=== PATIENT | female | born 1970 | race Caucasian/White ===

== ENCOUNTER → 2017-05-12 | Outpatient (CLI) | payer BC ==
--- NOTE | 2017-05-12 16:15 | WOMENS IMAGING REPORT ---
EXAM DESCRIPTION: BILAT SCREENING MAMMO W/CAD COMPLETED DATE/TIME: 05/12/2017 3:14 pm REASON FOR STUDY: ROUTINE SCREENING; Z12.31 Z12.31 ENCNTR SCREEN MAMMOGRAM FOR MALIGNANT NEOPLASM O F MARY COMPARISON: 05/06/2009. TECHNIQUE: Standard craniocaudal and mediolateral oblique views of each breast recorded using Gezlonga l acquisition. LIMITATIONS: None. FINDINGS: No masses, calcifications or architectural distortion. No areas of suspicion. Read with the assistance of CAD. .[facility] - R2 Cenova Version 1.3 .[facility] - R2 Cenova Version 1.3 .[facility] - R2 Cenova Version 2.4 .[facility] - R2 Cenova Version 2.4 .[facility] - R2 Screw Driver Operator Version 9.2 IMPRESSION: NORMAL MAMMOGRAM. BIRADS 1. BREAST DENSITY: b. There are scattered areas of fibroglandular density. BIRAD: 1 NEGATIVE RECOMMENDATION: ROUTINE SCREENING COMMENT: The patient has been notified of the results by letter per SA requirements. Additional no tification policies are in place for contacting patient with suspicious or incomplete findings. Quality ID #[id number]: The [employer] recommends an annual screening mammogram for women aged 40 years or over. This facility utilizes a reminder system to ensure that all patients receive reminder letters, and/or direct phone calls for appointments. This includes reminders for routine scr eening mammograms, diagnostic mammograms, or other Breast Imaging Interventions when appropriate. Th is patient will be placed in the appropriate reminder system. The [employer] (A[employer]) has developed recommendations for screening MRI of the breast s in certain patient populations, to be used in conjunction with mammography. Breast MRI surveillanc e may be appropriate for women with more than 20% lifetime risk of developing breast cancer as deter mined by genetic testing, significant family history of the disease, or history of mantle radiation f or Hodgkins Disease. ACR Practice Guidelines 2008. TECHNICAL DOCUMENTATION: FINDING NUMBER: (1) ASSESSMENT: (1) JOB ID: [id number] [employer]- All Rights Reserved
== END ==
LOC: WI 14:56
PROVIDERS: ATTEND Specialist
DX: Z12.31 Encounter for screening mammogram for malignant neoplasm of breast (principal)
CPT/HCPCS: 77067; G0202

== ENCOUNTER 2017-06-11 15:04 | Emergency (ER) | payer BC ==
--- NOTE | 2017-06-11 15:29 | ER Document Report ---
ED General - General Mode of Arrival: Ambulatory Information source: Patient TRAVEL OUTSIDE OF THE [place] IN LAST 30 DAYS: No - HPI Similar symptoms previously: No Recently seen / treated by doctor: No <JASWANT CAMPBELL - Last Filed: 06/11/17 16:38> <DREADTABBYALEKSANDRA - Last Filed: 06/11/17 20:08> - General Chief Complaint: Nausea Stated Complaint: NAUSEA Time Seen by Provider: 06/11/17 15:24 Notes: Patient is a 47 year old female presenting to the emergency department for nausea, lightheadedness, and not feeling well. Patient's symptoms were onset around 13:30. Patient states she does not feel well. Patient ran out of her hypertension medication yesterday (Losartan 25mg x1 daily). Patient's last dose was yesterday. Patient states she is concerned about possible diabetes because she states she does not eat well, drinks lots of sweet tea, and sometimes has to eat a candy or soda while working to keep herself going. Patient states she sometimes has chest pain but has not had any today. Patient states she is feeling "off and not right." Patient denies any dizziness when walking, vomiting , or diarrhea. (JASWANT CAMPBELL) - Related Data Allergies/Adverse Reactions: No Known Allergies Allergy (Verified 06/11/17 15:10) Past Medical History - General Information source: Patient - Social History Smoking Status: Current Every Day Smoker Chew tobacco use (# tins/day): No Smoking Education Provided: Yes - >5 minutes Frequency of alcohol use: Rare Drug Abuse: None Family History: Arthritis, Hypertension, Malignancy Patient has suicidal ideation: No Patient has homicidal ideation: No - Past Medical History Cardiac Medical History: Reports: Hx Hypertension Psychiatric Medical History: Reports: Hx Anxiety, Hx Depression Past Surgical History: Reports: Hx Tubal Ligation - Immunizations Immunizations up to date: No Hx Diphtheria, Pertussis, Tetanus Vaccination: No <JASWANT CAMPBELL - Last Filed: 06/11/17 16:38> Review of Systems - Review of Systems Constitutional: No symptoms reported EENT: No symptoms reported Cardiovascular: See HPI, Lightheaded Respiratory: No symptoms reported Gastrointestinal: See HPI, Nausea Genitourinary: No symptoms reported Female Genitourinary: No symptoms reported Musculoskeletal: No symptoms reported Skin: No symptoms reported Hematologic/Lymphatic: No symptoms reported Neurological/Psychological: No symptoms reported -: Yes All other systems reviewed and negative <JASWANT CAMPBELL - Last Filed: 06/11/17 16:38> Physical Exam - Vital signs Interpretation: Normal <JASWANT CAMPBELL - Last Filed: 06/11/17 16:38> <ALEKSANDRA MARIO - Last Filed: 06/11/17 20:08> - Vital signs Vitals: Temp Pulse Resp BP Pulse Ox 98.4 F 92 12 122/77 99 06/11/17 15:10 06/11/17 15:10 06/11/17 15:10 06/11/17 15:10 06/11/17 15:10 - Notes Notes: GENERAL: Alert, interacts well. No acute distress. HEAD: Normocephalic, atraumatic. EYES: Pupils equal, round, and reactive to light. Extraocular movements intact. ENT: Oral mucosa moist, tongue midline. NECK: Full range of motion. Supple. Trachea midline. LUNGS: Clear to auscultation bilaterally, no wheezes, rales, or rhonchi. No respiratory distress. HEART: Regular rate and rhythm. No murmurs, gallops, or rubs. ABDOMEN: Soft, non-tender. Non-distended. Bowel sounds present in all 4 quadrants. EXTREMITIES: Moves all 4 extremities spontaneously. No edema. NEUROLOGICAL: Alert and oriented x3. Normal speech. PSYCH: Normal affect, normal mood. SKIN: Warm, dry, normal turgor. No rashes or lesions noted. (JASWANT CAMPBELL) Course - Laboratory Result Diagrams: 06/11/17 15:59 06/11/17 15:59 <JASWANT CAMPBELL - Last Filed: 06/11/17 16:38> - Laboratory Result Diagrams: 06/11/17 15:59 06/11/17 15:59 <ALEKSANDRA MARIO - Last Filed: 06/11/17 20:08> - Re-evaluation Re-evalutation: 06/11/17 17:22 CBC shows anemia with hemoglobin 9.2, no leukocytosis, CMP grossly unremarkable , urinalysis only's most small leukocyte esterase and that is with 5 squamous epithelial cells likely contaminated, EKG is nonischemic nor is it bradycardic or delayed. Some of her symptoms may be coming from her anemia but she does not have any complaints that would relate to a GI bleed at this time, patient should have her anemia followed up as an outpatient. No evidence of myocardial infarction. Vital signs are stable. Patient's losartan will be refilled and she is asked to follow-up for her general malaise and anemia as an outpatient. ( ALEKSANDRA MARIO) - Vital Signs Vital signs: Temp Pulse Resp BP Pulse Ox 98.4 F 85 16 112/79 100 06/11/17 15:10 06/11/17 17:39 06/11/17 17:39 06/11/17 17:39 06/11/17 17:39 - Laboratory Laboratory results interpreted by me: 06/11/17 06/11/17 06/11/17 15:59 15:59 15:59 Hgb 9.2 L Hct 29.8 L MCV 63 L MCH 19.5 L MCHC 31.0 L RDW 18.3 H AST 12 L Ur Leukocyte Esterase SMALL H Discharge <JASWANT CAMPBELL - Last Filed: 06/11/17 16:38> <ALEKSANDRA MARIO - Last Filed: 06/11/17 20:08> - Discharge Clinical Impression: Tobacco abuse, Tobacco abuse counseling Anemia Qualifiers: Anemia type: unspecified type Qualified Code(s): D64.9 - Anemia, unspecified Condition: Stable Disposition: HOME, SELF-CARE Additional Instructions: Today your blood count was found to be somewhat low, hemoglobin is 9.2. You will need to have this rechecked in the next 1-2 weeks with your primary care physician to make sure that it does not continue to get lower. Please return to the emergency department should you develop any dark black tarry stools or you start vomiting blood. Please return to the emergency department for any new or concerning symptoms. Prescriptions: Losartan Potassium 25 mg PO DAILY #30 tablet Forms: Smoking Cessation Education Scribe Attestation: 06/11/17 20:08 I personally performed the services described in the documentation, reviewed and edited the documentation which was dictated to the scribe in my presence, and it accurately records my words and actions. (ALEKSANDRA MARIO) Scribe Documentation - Scribe Written by Khari:: Khari Suarez 06/11/17 16:41 acting as scribe for :: Carline <JASWANT CAMPBELL - Last Filed: 06/11/17 16:38>
[2017-06-11 16:09] LABS: ABSOLUTE EOSINOPHILS # (AUTO) 0.2 10^3/uL (0.0-0.6); ABSOLUTE LYMPHOCYTES (AUTO) 2.3 10^3/uL (0.5-4.7); ABSOLUTE MONOCYTES (AUTO) 0.6 10^3/uL (0.1-1.4); ABSOLUTE NEUT (AUTO) 4.4 10^3/uL (1.7-8.2); BASOPHILS % (AUTO) 0.5 % (0-2); EOSINOPHILS % (AUTO) 2.2 % (0-6); HEMATOCRIT 29.8 % (36.0-47.0); HEMOGLOBIN 9.2 g/dL (12.0-15.5); HGB HCT DIFFERENCE -2.2; LYMPHOCYTES % (AUTO) 30.9 % (13-45); MEAN CORPUSCULAR HEMOGLOBIN 19.5 pg (27.0-33.4); MONOCYTES % (AUTO) 7.6 % (3-13); RED BLOOD COUNT 4.74 10^6/uL (3.72-5.28); RED CELL DISTRIBUTION WIDTH 18.3 % (11.5-14.0); SEGMENTED NEUTROPHILS % (AUTO) 58.8 % (42-78); WHITE BLOOD COUNT 7.5 10^3/uL (4.0-10.5)
[2017-06-11 16:12] LABS: APPEARANCE,URINE SLIGHTLY-CLOUDY; BILIRUBIN,URINE NEGATIVE (NEGATIVE); GLUCOSE, URINE NEGATIVE (NEGATIVE); KETONES,URINE NEGATIVE (NEGATIVE); LEUKOCYTE ESTERASE,URINE SMALL (NEGATIVE); NITRITE,URINE NEGATIVE (NEGATIVE); PROTEIN,URINE NEGATIVE (NEGATIVE); UROBILINOGEN,URINE NEGATIVE mg/dL (<2.0)
[2017-06-11 16:24] LABS: ALANINE AMINOTRANSFERASE 21 U/L (9-52); ALBUMIN 3.8 g/dL (3.5-5.0); ALKALINE PHOSPHATASE 84 U/L (38-126); ANION GAP 11 (5-19); ASPARTATE AMINO TRANSFERASE 12 U/L (14-36); BILIRUBIN,DIRECT 0.3 mg/dL (0.0-0.4); BILIRUBIN,TOTAL 0.7 mg/dL (0.2-1.3); BLOOD UREA NITROGEN 12 mg/dL (7-20); CALCIUM 9.4 mg/dL (8.4-10.2); CARBON DIOXIDE 24 mmol/L (22-30); CHLORIDE 104 mmol/L (98-107); CREATININE RESULT 0.78 mg/dL (0.52-1.25); GLUCOSE 98 mg/dL (75-110); POTASSIUM 4.2 mmol/L (3.6-5.0); SODIUM 139.4 mmol/L (137-145); TOTAL PROTEIN 6.8 g/dL (6.3-8.2)
[2017-06-11 16:29] LABS: TOXIC GRANULATION SLIGHT
[2017-06-11 16:30] LABS: ANISOCYTOSIS 2+; HYPOCHROMASIA 2+; MEAN CORPUSCULAR VOLUME 63 fl (80-97); MICROCYTOSIS 3+; OVALOCYTES SLIGHT; POIKILOCYTOSIS 1+
[2017-06-11 17:41] VITALS: BP 112/79
--- NOTE | 2017-06-12 00:13 | EKG REPORT ---
SEVERITY:- NORMAL ECG - SINUS RHYTHM : Confirmed by: Osbaldo Blackman 12-Jun-2017 00:12:35
[2017-06-14 12:54] LABS: PATH REVIEW PATHOLOGIST REVIEWED
== END 2017-06-11 17:41 | disposition home or self-care (01) ==
LOC: ER 15:04
DX: D64.9 Anemia, unspecified (principal); R11.0 Nausea; R42 Dizziness and giddiness; R53.81 Other malaise; I10 Essential (primary) hypertension; F17.200 Nicotine dependence, unspecified, uncomplicated; Z71.6 Tobacco abuse counseling; Z79.899 Other long term (current) drug therapy
CPT/HCPCS: 36415; 80053; 81001; 84484; 85025; 93005; 93010; 99283; 99406

== ENCOUNTER 2017-10-09 15:00 | Emergency (ER) | payer BC ==
[2017-10-09 15:07] VITALS: BP 129/86
--- NOTE | 2017-10-09 15:53 | ER Document Report ---
ED Respiratory Problem - General Chief Complaint: Cough Stated Complaint: COUGH Time Seen by Provider: 10/09/17 15:50 Notes: The patient is a 47-year-old female, former smoker, who presents with 1 week of a dry cough that is worse at night. Her daughter had similar symptoms last week. She is now coughing up yellow sputum. She denies hemoptysis, fevers, chest pain, shortness of breath, leg swelling, recent travel or back pain. TRAVEL OUTSIDE OF THE [place] IN LAST 30 DAYS: No - Related Data Allergies/Adverse Reactions: No Known Allergies Allergy (Verified 10/09/17 15:02) Past Medical History - General Information source: Patient - Social History Smoking Status: Former Smoker Chew tobacco use (# tins/day): No Frequency of alcohol use: None Drug Abuse: None Family History: Arthritis, Hypertension, Malignancy Patient has suicidal ideation: No Patient has homicidal ideation: No - Past Medical History Cardiac Medical History: Reports: Hx Hypertension Renal/ Medical History: Denies: Hx Peritoneal Dialysis Psychiatric Medical History: Reports: Hx Anxiety, Hx Depression Past Surgical History: Reports: Hx Tubal Ligation - Immunizations Immunizations up to date: No Hx Diphtheria, Pertussis, Tetanus Vaccination: No Review of Systems - Review of Systems Notes: REVIEW OF SYSTEMS: CONSTITUTIONAL: -fevers, -chills EENT: -eye pain, -difficulty swallowing, -nasal congestion CARDIOVASCULAR:-chest pain, -syncope. RESPIRATORY: +cough, -SOB GASTROINTESTINAL: -abdominal pain, - nausea, -vomiting, -diarrhea GENITOURINARY: -dysuria, -hematuria MUSCULOSKELETAL: -back pain, -neck pain SKIN: -rash or skin lesions. HEMATOLOGIC: -easy bruising or bleeding. LYMPHATIC: -swollen, enlarged glands. NEUROLOGICAL: -altered mental status or loss of consciousness, -headache, - neurologic symptoms PSYCHIATRIC: -anxiety, -depression. ALL OTHER SYSTEMS REVIEWED AND NEGATIVE. Physical Exam - Vital signs Vitals: Temp Pulse Resp BP Pulse Ox 98.6 F 94 14 129/86 H 99 10/09/17 15:07 10/09/17 15:07 10/09/17 15:07 10/09/17 15:07 10/09/17 15:07 - Notes Notes: PHYSICAL EXAMINATION: GENERAL: Well-appearing, well-nourished and in no acute distress. HEAD: Atraumatic, normocephalic. EYES: Pupils equal round and reactive to light, extraocular movements intact, sclera anicteric, conjunctiva are normal. ENT: nares patent, oropharynx clear without exudates. Moist mucous membranes. NECK: Normal range of motion, supple without lymphadenopathy LUNGS: Breath sounds clear to auscultation bilaterally and equal. No wheezes rales or rhonchi. HEART: Regular rate and rhythm without murmurs ABDOMEN: Soft, nontender, normoactive bowel sounds. No guarding, no rebound. No masses appreciated. EXTREMITIES: Normal range of motion, no pitting or edema. No cyanosis. NEUROLOGICAL: Cranial nerves grossly intact. Normal speech, normal gait. Normal sensory and motor exams. PSYCH: Normal mood, normal affect. SKIN: Warm, Dry, normal turgor, no rashes or lesions noted. Course - Re-evaluation Re-evalutation: Patient is in no respiratory distress and lungs are clear. Chest x-ray does not show any focal infiltrates. Instructed patient about symptomatic treatment with beta agonist, humidifiers, honey and Tessalon Perles for her cough. Given return precautions and she understands. - Vital Signs Vital signs: Temp Pulse Resp BP Pulse Ox 98.6 F 94 14 129/86 H 99 10/09/17 15:07 10/09/17 15:07 10/09/17 15:07 10/09/17 15:07 10/09/17 15:07 - Diagnostic Test Radiology reviewed: Image reviewed, Reports reviewed Radiology results interpreted by me: CXR: NAD Discharge - Discharge Clinical Impression: Cough Condition: Stable Disposition: HOME, SELF-CARE Additional Instructions: UPPER RESPIRATORY ILLNESS: You have a viral infection of the respiratory passages -- a "cold." This common infection causes nasal congestion, drainage, and often sore throat and cough. It is highly contagious. The disease usually lasts about 10 to 14 days. There is no "cure" for the viral infection -- it must run its course. If there is a complication, such as bacterial infection in the nose, sinuses, middle ear, or bronchial tubes, antibiotics may be required. The antibiotics won't affect the virus. Drink plenty of fluids. A humidifier may help. An expectorant medication or decongestant may make you more comfortable. Use acetaminophen or ibuprofen for fever or aches. See the doctor if fever persists over two days, if there is any significant worsening of your symptoms, or if you simply fail to improve as expected. BRONCHOSPASM: You have tightness in the bronchial tubes, called bronchospasm. This often occurs with bronchial infections. Allergies, inhaled chemicals, and polluted or cold air can also provoke bronchospasm. It's more likely in patients with asthma in the family. Emergency treatment of bronchospasm may include adrenaline shots or bronchodilator aerosol. You may feel lightheaded and have a rapid pulse for an hour or two. Rest and get plenty of fluids. At home, we'll treat you with a bronchodilator inhaler. Antibiotics and corticosteroids may be required for some patients. Until you recover, avoid chemical fumes, dusts, pollens, and exercising in very cold or dry air. If you smoke, stop now!! If you develop a fever, increased wheezing, chest pain, or severe shortness of breath, you should contact the doctor immediately. COUGH-SUPPRESSANT & EXPECTORANT MEDICATION: You are to use a cough medication as needed for relief of symptoms. This medicine is a combination of an expectorant (to make the mucous thinner and more easily "coughed up") and a cough suppressant (to reduce the frequency of coughing). The cough-suppressant medicine is related to narcotics. You may experience mild nausea and sleepiness. Some patients who are very sensitive to narcotics may have stomach pain from this medicine. Taking the medicine with food reduces these side effects. Do not drive or work with machinery until you know how this medicine affects you. The expectorant should have no side effects. Iodine-containing expectorants (such as organidin) should not be taken by persons with active thyroid disease unless approved by your doctor. Call the doctor if you develop shortness of breath, hives, rash, itching, lightheadedness, or severe nausea and vomiting. INHALED BRONCHODILATORS: You have received a treatment of and/or prescription for an inhaled bronchodilator -- a medication which stimulates the airways in the lung to dilate. This improves the flow of air in asthma, bronchitis, and emphysema. These medicines have some similarity to adrenaline, and can cause similar side effects: shakiness, racing heart, and a sense of nervousness. These side effects decrease with time. Contact your doctor if these side effects are severe. Do not over-use the medicine. Too-frequent use of the inhaler may make it ineffective. Call your doctor if the inhaler is not controlling your symptoms at the prescribed doses. USE OF ACETAMINOPHEN (Tylenol): Acetaminophen may be taken for pain relief or fever control. It's much safer than aspirin, offering a wider range of "safe" dosages. It is safe during . Some brand names are Tylenol, Panadol, Datril, Anacin 3, Tempra, and Liquiprin. Acetaminophen can be repeated every four hours. The following are maximum recommended dosages: >89 pounds or adults 650 mg to 900 mg Acetaminophen can be repeated every four hours. Maximum dose not to exceed 4000 mg a day. SMOKING: If you smoke, you should stop smoking. The tar and chemicals in cigarette smoke are harmful. Smoking has been shown to cause: emphysema chronic bronchitis lung cancer mouth and throat cancer stomach and pancreas cancer premature aging defects In addition, smoking increases ear and lung infections in children of smokers. FOLLOW-UP CARE: If you have been referred to a physician for follow-up care, call the physician s office for an appointment as you were instructed or within the next two days. If you experience worsening or a significant change in your symptoms, notify the physician immediately or return to the Emergency Department at any time for re-evaluation. Prescriptions: Benzonatate [Tessalon Perles 100 mg Capsule] 100 mg PO Q8HP PRN #20 capsule PRN Reason: Albuterol Sulfate [Proair HFA Inhalation Aerosol 8.5 gm MDI] 2 puff IH Q4H PRN # 1 mdi PRN Reason: Forms: Elevated Blood Pressure Referrals: FAINA GRUBBS MD [Primary Care Provider] - Follow up as needed
--- NOTE | 2017-10-09 16:17 | RADIOLOGY REPORT (SQ) ---
EXAM DESCRIPTION: CHEST PA/LAT COMPLETED DATE/TIME: 10/09/2017 4:03 pm REASON FOR STUDY: cough COMPARISON: 10/06/2011 EXAM PARAMETERS: NUMBER OF VIEWS: two views TECHNIQUE: Digital Frontal and Lateral radiographic views of the chest acquired. RADIATION DOSE: NA LIMITATIONS: none FINDINGS: LUNGS AND PLEURA: No opacities, masses or pneumothorax. No pleural effusion. MEDIASTINUM AND HILAR STRUCTURES: No masses or contour abnormalities. HEART AND VASCULAR STRUCTURES: Heart normal size. No evidence for failure. BONES: No acute findings. HARDWARE: None in the chest. OTHER: No other significant finding. IMPRESSION: NO SIGNIFICANT RADIOGRAPHIC FINDING IN THE CHEST. TECHNICAL DOCUMENTATION: JOB ID: [id number] [employer]- All Rights Reserved
[2017-10-09] MEDS ORDERED: BENZONATATE 100 MG CAPSULE PO ONE (16:22)
== END 2017-10-09 16:40 | disposition home or self-care (01) ==
LOC: ER 15:00
DX: R05 Cough (principal); Z87.891 Personal history of nicotine dependence
CPT/HCPCS: 71020; 99283

== ENCOUNTER 2017-12-07 12:52 | Emergency (ER) | payer BC ==
[2017-12-07] MEDS ORDERED: IPRATROPIUM/ALBUTEROL 0.5-2.5 MG/3 ML AMPUL NEB ONE (14:07)
[2017-12-07] MEDS ORDERED: PREDNISONE 20 MG TABLET PO ONE (14:08)
--- NOTE | 2017-12-07 14:17 | ER Document Report ---
HPI - HPI Patient complains to provider of: Cough Onset: Other - 3 days Onset/Duration: Persistent Pain Level: 0 Context: Patient complains of chronic cough that worsened over the past 3 days. Patient reports sinus congestion and diarrhea. Patient denies any nausea, vomiting or fever. Patient denies any chest discomfort. Associated Symptoms: Nonproductive cough, Diarrhea. denies: Chest pain, Fever, Headache, Nausea, Vomiting Exacerbated by: Denies Relieved by: Denies Similar symptoms previously: Yes Recently seen / treated by doctor: No - ROS ROS below otherwise negative: Yes Systems Reviewed and Negative: Yes All other systems reviewed and negative - CONSTITUTIONAL Constitutional: DENIES: Fever, Chills - EENT EENT: REPORTS: Congestion. DENIES: Sore Throat - CARDIOVASCULAR Cardiovascular: DENIES: Chest pain - RESPIRATORY Respiratory: REPORTS: Coughing. DENIES: Trouble Breathing - GASTROINTESTINAL Gastrointestinal: REPORTS: Diarrhea. DENIES: Abdominal Pain, Patient vomiting - REPRODUCTIVE Reproductive: DENIES: : - DERM Skin Color: Normal Skin Problems: None Past Medical History - General Information source: Patient - Social History Smoking Status: Former Smoker Frequency of alcohol use: None Drug Abuse: None Occupation: [employer] Family History: Arthritis, Hypertension, Malignancy - Past Medical History Cardiac Medical History: Reports: Hx Hypertension Renal/ Medical History: Denies: Hx Peritoneal Dialysis Psychiatric Medical History: Reports: Hx Anxiety, Hx Depression Past Surgical History: Reports: Hx Tubal Ligation - Immunizations Immunizations up to date: No Hx Diphtheria, Pertussis, Tetanus Vaccination: No Vertical Provider Document - CONSTITUTIONAL Agree With Documented VS: Yes Exam Limitations: No Limitations General Appearance: WD/WN, No Apparent Distress - INFECTION CONTROL TRAVEL OUTSIDE OF THE [place] IN LAST 30 DAYS: No - HEENT HEENT: Atraumatic, Normal ENT Exam, Normocephalic - NECK Neck: Normal Inspection, Supple - RESPIRATORY Respiratory: No Respiratory Distress, Wheezing - with cough O2 Sat by Pulse Oximetry: 99 - CARDIOVASCULAR Cardiovascular: Regular Rate, Regular Rhythm, No Murmur - BACK Back: Normal Inspection - MUSCULOSKELETAL/EXTREMETIES Musculoskeletal/Extremeties: MAEW - NEURO Level of Consciousness: Awake, Alert, Appropriate Motor/Sensory: No Motor Deficit - DERM Integumentary: Warm, Dry, No Rash Course - Re-evaluation Re-evalutation: 12/07/17 15:37 Patient's respirations unlabored. Patient nontoxic in appearance. No concern for pneumonia pneumothorax, or PE. Discussed worsening symptoms that patient should return mainly for. Patient verbalized understanding and agrees with plan of care - Vital Signs Vital signs: Temp Pulse Resp BP Pulse Ox 98.5 F 97 18 124/87 H 99 12/07/17 13:04 12/07/17 13:04 12/07/17 13:04 12/07/17 13:04 12/07/17 13:04 - Diagnostic Test Radiology reviewed: Image reviewed, Reports reviewed Discharge - Discharge Clinical Impression: Cough, Bronchospasm Condition: Stable Disposition: HOME, SELF-CARE Instructions: Bronchospasm ([facility]), Inhaled Bronchodilators ([facility]), Steroid Medication, Upper Respiratory Illness ([facility]) Additional Instructions: Return immediately for any new or worsening symptoms Followup with your primary care provider, call tomorrow to make a followup appointment Prescriptions: Albuterol Sulfate [Ventolin Hfa] 2 puff IH Q4HP PRN #17 gm PRN Reason: Prednisone [Deltasone 10 mg Tablet] 10 mg PO ASDIR PRN #21 tablet PRN Reason: Forms: Return to Work Referrals: [facility] [Provider Group] - Follow up tomorrow
--- NOTE | 2017-12-07 15:23 | RADIOLOGY REPORT (SQ) ---
EXAM DESCRIPTION: CHEST PA/LAT COMPLETED DATE/TIME: 12/07/2017 3:05 pm REASON FOR STUDY: cough COMPARISON: Two-view chest 10/09/2017, 10/06/2011, 08/01/2011 EXAM PARAMETERS: NUMBER OF VIEWS: two views TECHNIQUE: Digital Frontal and Lateral radiographic views of the chest acquired. RADIATION DOSE: NA LIMITATIONS: none FINDINGS: LUNGS AND PLEURA: No opacities, masses or pneumothorax. No pleural effusion. MEDIASTINUM AND HILAR STRUCTURES: No masses or contour abnormalities. HEART AND VASCULAR STRUCTURES: Heart normal size. No evidence for failure. BONES: No acute findings. HARDWARE: None in the chest. OTHER: No other significant finding. IMPRESSION: NO SIGNIFICANT RADIOGRAPHIC FINDING IN THE CHEST. TECHNICAL DOCUMENTATION: JOB ID: [id number] [employer]- All Rights Reserved
[2017-12-07 15:47] VITALS: BP 114/74
== END 2017-12-07 15:50 | disposition home or self-care (01) ==
LOC: ER 12:52
DX: J98.01 Acute bronchospasm (principal); R05 Cough; Z87.891 Personal history of nicotine dependence
CPT/HCPCS: 94640; 99283; 71046; J7512; J7620

== ENCOUNTER 2017-12-21 15:35 | Emergency (ER) | payer BC ==
[2017-12-21] MEDS ORDERED: IBUPROFEN 800 MG TABLET PO ONE (16:42)
[2017-12-21] MEDS ORDERED: ONDANSETRON 4 MG TAB.RAPDIS PO ONE (16:42)
--- NOTE | 2017-12-21 16:48 | ER Document Report ---
ED Extremity Problem, Upper - General Chief Complaint: Arm Pain Stated Complaint: LT HAND/ARM PAIN Time Seen by Provider: 12/21/17 16:20 Mode of Arrival: Ambulatory Information source: Patient Notes: 47-year-old female presents to ED for complaint of left hand and wrist pain the last 2 days. She states she does a lot of repetitive work at [employer] and the pain started in several fingertips and now has progress down to her hand and arm sometimes goes all way up her arm. She states she does not remember any definite injury. Patient alert and oriented speaks with clear complete sentences walks with the even steady gait has full range of motion of her hand and wrist. TRAVEL OUTSIDE OF THE [place] IN LAST 30 DAYS: No - HPI Patient complains to provider of: Left, Arm, Hand, Wrist Onset: Other - 2 days Recent injury: No Where: Work Quality of pain: Achy, Cramping, Sharp Severity of pain: Moderate Pain Level: 3 - Related Data Allergies/Adverse Reactions: No Known Allergies Allergy (Verified 12/07/17 12:59) Past Medical History - General Information source: Patient - Social History Smoking Status: Former Smoker Cigarette use (# per day): No Smoking Education Provided: No Frequency of alcohol use: None Drug Abuse: None Occupation: [employer] Lives with: Family Family History: Arthritis, COPD, CVA, DM, Hypertension, Malignancy. denies: CAD , Hyperlipidemia, Thyroid Disfunction Patient has suicidal ideation: No Patient has homicidal ideation: No - Past Medical History Cardiac Medical History: Reports: Hx Hypertension Pulmonary Medical History: Reports: None EENT Medical History: Reports: None Neurological Medical History: Reports: None Endocrine Medical History: Reports: None Renal/ Medical History: Reports: None Malignancy Medical History: Reports: None GI Medical History: Reports: None Musculoskeltal Medical History: Reports None Skin Medical History: Reports None Psychiatric Medical History: Reports: Hx Anxiety, Hx Depression Traumatic Medical History: Reports: None Infectious Medical History: Reports: None Past Surgical History: Reports: Hx Tubal Ligation, Other - Ears surgery for hearing - Immunizations Immunizations up to date: No Hx Diphtheria, Pertussis, Tetanus Vaccination: No Review of Systems - Review of Systems Notes: Constitutional: [PRESENT: as per HPI. ABSENT: chills, fever(s), headache(s), weight gain, weight loss] Eyes: [ABSENT: visual disturbances] Ears: [ABSENT: hearing changes] Cardiovascular: [ABSENT: chest pain, dyspnea on exertion, edema, orthropnea, palpitations] Respiratory: [ABSENT: cough, hemoptysis] Gastrointestinal: [ABSENT: abdominal pain, constipation, diarrhea, hematemesis, hematochezia, nausea, vomiting] Genitourinary: [ABSENT: dysuria, hematuria] Musculoskeletal: Tenderness to the left hand and wrist no actual swelling noted pain with range of motion to the thumb and wrist Integumentary: [ABSENT: rash, wounds] Neurological: [ABSENT: abnormal gait, abnormal speech, confusion, dizziness, focal weakness, syncope] Psychiatric: [ABSENT: anxiety, depression, homicidal ideation, suicidal ideation ] Endocrine: [ABSENT: cold intolerance, heat intolerance, menstrual abnormalities , polydipsia, polyuria] Hematologic/Lymphatic: [ABSENT: easy bleeding, easy bruising, lymphadenopathy] Physical Exam - Vital signs Vitals: Temp Pulse Resp BP Pulse Ox 98.9 F 93 16 128/75 H 98 12/21/17 15:42 12/21/17 15:42 12/21/17 15:42 12/21/17 15:42 12/21/17 15:42 - Notes Notes: PHYSICAL EXAMINATION: GENERAL: Well-appearing, well-nourished and in no acute distress. HEAD: Atraumatic, normocephalic. EYES: Pupils equal round and reactive to light, extraocular movements intact, conjunctiva are normal. ENT: Nares patent, oropharynx clear without exudates. Moist mucous membranes. NECK: Normal range of motion, supple without lymphadenopathy LUNGS: Breath sounds clear to auscultation bilaterally and equal. No wheezes rales or rhonchi. HEART: Regular rate and rhythm without murmurs ABDOMEN: Soft, nontender, nondistended abdomen. No guarding, no rebound. No masses appreciated. Female : deferred Musculoskeletal: Pain with range of motion to the left thumb and wrist, no pitting or edema. No cyanosis. NEUROLOGICAL: Cranial nerves grossly intact. Normal speech, normal gait. Normal sensory, motor exams PSYCH: Normal mood, normal affect. SKIN: Warm, Dry, normal turgor, no rashes or lesions noted. Course - Re-evaluation Re-evalutation: 12/22/17 00:28 X-ray showed no acute injury. Before patient was discharged a cock-up splint was applied for patient's comfort. Patient was instructed that if pain continues she needs to follow-up with orthopedics. Instructions were given concerning use of cock-up splint for comfort. Patient was also given instructions on ice elevation and ibuprofen. Patient was able to verbalize understanding of instructions. - Vital Signs Vital signs: Temp Pulse Resp BP Pulse Ox 98.9 F 74 16 108/80 98 12/21/17 15:42 12/21/17 18:53 12/21/17 18:53 12/21/17 18:53 12/21/17 18:53 - Diagnostic Test Radiology reviewed: Image reviewed, Reports reviewed Procedures - Immobilization Left Wrist Time completed: 18:35 Immobilizer type: Cock-up Performed by: PCT Post-Proc Neuro Vasc Exam: Normal Alignment checked and good: Yes Discharge - Discharge Clinical Impression: Left wrist pain, Left hand pain, HTN (hypertension) Condition: Stable Disposition: HOME, SELF-CARE Additional Instructions: You were seen today for pain to the left wrist and hand for the last couple days. She states there is no acute injury. Your x-ray was negative. I have applied a cock-up splint to your left wrist to reduce the motion to the wrist to help with her discomfort. Wear this for comfort and follow-up with orthopedic for continued pain in your wrist. Ice & Elevation Apply ice packs frequently against the painful area. Many different schedules are recommended, such as "20 minutes on, 20 minutes off" or "one hour ice, two hours rest." If you need to work, you may need to go longer between ice treatments. You should plan to have the area ice packed AT LEAST one- fourth of the time. The ice should be applied over the wrap, tape, or splint, or over a layer of cloth -- not directly against the skin. Some ice bags have a built-in cloth and can be put directly on the skin. Your injured part should be elevated as much as possible over the next 48 hours. Try to keep the injury above the level of the heart. Avoid use of the injured area. Elevation and rest will decrease the swelling. Ibuprofen Ibuprofen is an excellent, safe drug for pain control. In addition, it has potent antiinflammatory effects which are beneficial, especially in the treatment of injuries, arthritis, or tendonitis. It's best to take ibuprofen with food. Persons with ulcer disease or allergy to aspirin should notify their physician of this before taking ibuprofen. Take the medication exactly as prescribed. Don't take additional doses unless instructed to do so by your doctor. If you develop wheezing, shortness of breath, hives, faintness, stomach pain, vomiting, or dark black stools, return for re-evaluation at once. Splint Precautions A splint has been placed. This will protect the area while healing begins. Your problem does NOT normally require a cast. It MUST, however, be held still! Keep the splint on ALL THE TIME until instructed to remove it by the doctor. As you begin to use the area, be careful. You shouldn't do anything which causes discomfort -- you may disturb the injury even with the splint in place. After the initial period of rest and elevation, if splint does not prevent pain when you move, come back. You may require placement of a different splint , or a cast. If there is unexpected severe pain, or numbness, discoloration, or swelling beyond the splint, you should return at once. If you feel that the splint has broken or become loose, come back. FOLLOW-UP CARE: If you have been referred to a physician for follow-up care, call the physician s office for an appointment as you were instructed or within the next two days. If you experience worsening or a significant change in your symptoms, notify the physician immediately or return to the Emergency Department at any time for re-evaluation. Forms: Elevated Blood Pressure, Return to Work Referrals: KATE ENCINAS MD [Primary Care Provider] - Follow up as needed JEET NAIK MD [ACTIVE STAFF] - Follow up as needed
--- NOTE | 2017-12-21 17:59 | RADIOLOGY REPORT (SQ) ---
EXAM DESCRIPTION: WRIST LEFT 3 VIEWS COMPLETED DATE/TIME: 12/21/2017 4:55 pm REASON FOR STUDY: pain, swelling COMPARISON: None. NUMBER OF VIEWS: Three views. TECHNIQUE: AP, lateral, and oblique radiographic images acquired of the left wrist. LIMITATIONS: None. FINDINGS: MINERALIZATION: Normal. BONES: No acute fracture or dislocation. No worrisome bone lesions. Normal alignment. SOFT TISSUES: No soft tissue swelling. No foreign body. OTHER: No other significant finding. IMPRESSION: NEGATIVE STUDY OF THE LEFT WRIST. NO RADIOGRAPHIC EVIDENCE OF ACUTE INJURY. TECHNICAL DOCUMENTATION: JOB ID: [id number] [employer]- All Rights Reserved Reading location - IP/workstation name: [email or web address]
--- NOTE | 2017-12-21 18:06 | RADIOLOGY REPORT (SQ) ---
EXAM DESCRIPTION: HAND LEFT 3 VIEWS COMPLETED DATE/TIME: 12/21/2017 4:55 pm REASON FOR STUDY: pain, swelling COMPARISON: None. EXAM PARAMETERS: NUMBER OF VIEWS: Three views. TECHNIQUE: AP, lateral and oblique radiographic images acquired of the left hand. LIMITATIONS: None. FINDINGS: MINERALIZATION: Normal. BONES: No acute fracture or dislocation. No worrisome bone lesions. JOINTS: No effusions. SOFT TISSUES: No soft tissue swelling. No foreign body. OTHER: No other significant finding. IMPRESSION: NEGATIVE STUDY OF THE LEFT HAND. NO RADIOGRAPHIC EVIDENCE OF ACUTE INJURY. TECHNICAL DOCUMENTATION: JOB ID: [id number] [employer]- All Rights Reserved Reading location - IP/workstation name: [email or web address]
[2017-12-21 18:54] VITALS: BP 108/80
== END 2017-12-21 18:55 | disposition home or self-care (01) ==
LOC: ER 15:35
DX: M79.642 Pain in left hand (principal); M25.532 Pain in left wrist; I10 Essential (primary) hypertension; Z87.891 Personal history of nicotine dependence; Z98.51 Tubal ligation status
CPT/HCPCS: 99283; 73130; 73110; L3908

== ENCOUNTER 2018-06-08 13:23 | Emergency (ER) | payer BC ==
--- NOTE | 2018-06-08 15:18 | ER Document Report ---
ED Medical Screen (RME) - General Chief Complaint: Leg Pain Stated Complaint: LEG PAIN Time Seen by Provider: 06/08/18 14:56 Mode of Arrival: Ambulatory Information source: Patient Notes: 48-year-old female presenting to the emergency room with left lower extremity pain. She states sometimes it is in the groin area and does point to the popliteal. She denies any fever, chills, nausea vomiting. Patient does report having a very long car ride in the end of April having driven to and from [place]. TRAVEL OUTSIDE OF THE [place] IN LAST 30 DAYS: No - HPI Onset: Last week Quality of pain: Dull Severity: Mild Pain Level: 1 Associated Symptoms: denies: Chest pain, Leg swelling, Shortness of breath Exacerbated by: Denies Relieved by: Denies Similar symptoms previously: No Recently seen / treated by doctor: No - Related Data Smoking: Cigarettes Frequency of alcohol use: None Drug Abuse: None Allergies/Adverse Reactions: No Known Allergies Allergy (Verified 06/08/18 13:24) Past Medical History - General Information source: Patient - Social History Cigarette use (# per day): Yes - Half a pack per day Chew tobacco use (# tins/day): No Frequency of alcohol use: None Drug Abuse: None Lives with: Family Family history: None - Past Medical History Cardiac Medical History: Reports: Hx Hypertension Renal/ Medical History: Denies: Hx Peritoneal Dialysis Psychiatric Medical History: Reports: Hx Anxiety, Hx Depression Past Surgical History: Reports: Hx Tubal Ligation, Other - Ears surgery for hearing - Immunizations Immunizations up to date: No Hx Diphtheria, Pertussis, Tetanus Vaccination: No Review of Systems - Review of Systems Constitutional: denies: Chills, Fever EENT: No symptoms reported Cardiovascular: denies: Chest pain, Palpitations, Heart racing, Dyspnea Respiratory: denies: Hemoptysis, Short of breath, Wheezing Gastrointestinal: No symptoms reported Genitourinary: No symptoms reported Female Genitourinary: No symptoms reported Musculoskeletal: See HPI Skin: No symptoms reported Hematologic/Lymphatic: No symptoms reported Neurological/Psychological: No symptoms reported Physical Exam - Vital signs Vitals: Temp Pulse Resp BP Pulse Ox 98.8 F 105 H 20 131/84 H 99 06/08/18 13:32 06/08/18 13:32 06/08/18 13:32 06/08/18 13:32 06/08/18 13:32 Notes: Physical exam: GENERAL: 28-year-old female, alert and oriented 3, no acute distress. HEAD: Atraumatic, normocephalic. EYES: Pupils equal round and reactive to light, extraocular movements intact, sclera anicteric, conjunctiva are normal. ENT: TMs normal, nares patent, oropharynx clear without exudates. Moist mucous membranes. NECK: Normal range of motion, supple without obvious mass or JVD. LUNGS: Breath sounds clear to auscultation bilaterally and equal. No wheezes rales or rhonchi. HEART: Regular rate and rhythm without murmurs, rubs or gallops. ABDOMEN: Soft, normoactive bowel sounds. No tenderness to palpation. No guarding, no rebound. No masses appreciated. EXTREMITIES: Patient points to her left inguinal region, popliteal and posterior lower calf to show where she had pain. There is no obvious swelling or tenderness or erythema in those locations. Normal range of motion, no pitting or edema. No clubbing or cyanosis. NEUROLOGICAL: Cranial nerves II through XII grossly intact. Normal speech, moving all extremities. PSYCH: Normal mood, normal affect. SKIN: Warm, Dry, normal turgor, no rashes or lesions noted. Course - Re-evaluation Re-evalutation: 06/08/18 19:36 I discussed the report with the lab animal technician who states that the thrombus in the greater saphenous is rather extensive and she believes it is beginning to encroach upon the common femoral. Given this, I am very concerned that she is in the process of developing a proximal DVT. I have opted to treat her with Xarelto. I have spoken with Dr. Morris of hematology/oncology and he has agreed with the treatment plan and will have the patient seen in the office June 16. I discussed this with the patient as well as the risks of bleeding from the Xarelto as well as the risks of not having a blood thinner and she agrees with the treatment plan. - Vital Signs Vital signs: Temp Pulse Resp BP Pulse Ox 98.8 F 93 16 133/92 H 97 06/08/18 16:56 06/08/18 16:56 06/08/18 16:56 06/08/18 16:56 06/08/18 16:56 - Laboratory Result Diagrams: 06/08/18 15:30 08/22/18 15:30 Laboratory results interpreted by me: 06/08/18 15:30 Hgb 8.7 L Hct 29.0 L MCV 60 L MCH 17.8 L MCHC 29.9 L RDW 19.5 H Doctor's Discharge - Discharge Clinical Impression: Thrombus-greater saphenous Condition: Stable Disposition: HOME, SELF-CARE Additional Instructions: As we discussed, the ultrasound showed a blood clot in the greater saphenous vein. While this is typically considered a "superficial vein", the clot appears to be extending and is thus posing a threat to become a DVT (deep vein clot) that we treated with blood thinner. After discussing this with the site safety manager, we will be starting you on Xarelto which is a blood thinner. I left the number for the hematology/oncology (this is the blood doctor) office and you have an appointment June 16 at 3:15 PM. In the meantime, return to the emergency room for chest pain, shortness of breath, worsening pain or swelling or any concerns or getting worse. In general, I think he should wear compression stockings while at work and you should be allowed to sit intermittently throughout the day while at work. Keep in mind that prolonged sitting is not desired as well. Prescriptions: Rivaroxaban [Xarelto 15 mg Tablet] 15 mg PO BID 21 Days #42 tablet Forms: Restricted Release Referrals: KATE ENCINAS MD [Primary Care Provider] - Follow up as needed YOLANDA MORRIS MD [ACTIVE STAFF] - 06/16/18 3:15 pm (This is a number of the site safety manager (blood ): Have an appointment with Dr. Lennon's clinic June 16 at 3:15 PM)
[2018-06-08 15:49] LABS: ABSOLUTE BASOPHILS # (AUTO) 0.1 10^3/uL (0.0-0.2); ABSOLUTE EOSINOPHILS # (AUTO) 0.1 10^3/uL (0.0-0.6); ABSOLUTE LYMPHOCYTES (AUTO) 2.5 10^3/uL (0.5-4.7); ABSOLUTE MONOCYTES (AUTO) 0.6 10^3/uL (0.1-1.4); ABSOLUTE NEUT (AUTO) 4.3 10^3/uL (1.7-8.2); EOSINOPHILS % (AUTO) 1.9 % (0-6); HEMOGLOBIN 8.7 g/dL (12.0-15.5); LYMPHOCYTES % (AUTO) 33.1 % (13-45); MEAN CORPUSCULAR HEMOGLOBIN 17.8 pg (27.0-33.4); MEAN CORPUSCULAR HGB CONC 29.9 g/dL (32.0-36.0); MONOCYTES % (AUTO) 7.4 % (3-13); PLATELET COUNT 382 10^3/uL (150-450); RED BLOOD COUNT 4.86 10^6/uL (3.72-5.28); RED CELL DISTRIBUTION WIDTH 19.5 % (11.5-14.0); SEGMENTED NEUTROPHILS % (AUTO) 56.6 % (42-78); TOTAL CELLS COUNTED % (AUTO) 100 %; WHITE BLOOD COUNT 7.5 10^3/uL (4.0-10.5)
[2018-06-08 16:08] LABS: ANISOCYTOSIS 2+; HYPOCHROMASIA 2+; OVALOCYTES SLIGHT; PLATELET COMMENT ADEQUATE; POIKILOCYTOSIS SLIGHT; TOXIC GRANULATION SLIGHT
[2018-06-08 16:09] LABS: MEAN CORPUSCULAR VOLUME 60 fl (80-97)
[2018-06-08 16:12] LABS: ANION GAP 11 (5-19); BLOOD UREA NITROGEN 10 mg/dL (7-20); CARBON DIOXIDE 28 mmol/L (22-30); CHLORIDE 104 mmol/L (98-107); GLUCOSE 81 mg/dL (75-110); POTASSIUM 4.4 mmol/L (3.6-5.0); SODIUM 142.6 mmol/L (137-145)
--- NOTE | 2018-06-08 16:33 | RADIOLOGY REPORT (SQ) ---
EXAM DESCRIPTION: VENOUS UNILATERAL LOWER COMPLETED DATE/TIME: 06/08/2018 4:25 pm REASON FOR STUDY: lle swelling COMPARISON: None. TECHNIQUE: Dynamic and static schaffer scale and color images acquired of the left leg venous system. Se lected spectral images acquired with additional compression and augmentation maneuvers. The contralat eral common femoral vein and saphenofemoral junction were also imaged. Images stored on PACS. LIMITATIONS: None. FINDINGS: COMMON FEMORAL: Normal phasicity, compression and augmentation. No visualized echogenic ma terial on schaffer scale. No defects on color images. FEMORAL: Normal compression and augmentation. No visualized echogenic material on schaffer scale. No defe cts on color images. POPLITEAL: Normal compression, augmentation. No visualized echogenic material on schaffer scale. No defec ts on color images. CALF VESSELS: Normal compression, augmentation. No visualized echogenic material on schaffer scale. No de fects on color images. GSV and SSV: Occlusive thrombus in the greater saphenous vein from the groin to just below the knee. ANY DEEP VENOUS INSUFFICIENCY: Not evaluated. ANY EVIDENCE OF POPLITEAL CYST: No. OTHER: No other significant finding. CONTRALATERAL COMMON FEMORAL VEIN AND SAPHENOFEMORAL JUNCTION: Normal phasicity, compression and augmentation. No visualized echogenic material on schaffer scale. No de fects on color images. IMPRESSION: Thrombus in the greater saphenous vein. No evidence of acute deep vein thrombosis. TECHNICAL DOCUMENTATION: JOB ID: [id number] [employer]- All Rights Reserved Reading location - IP/workstation name: [email or web address]
--- NOTE | 2018-06-08 16:46 | RADIOLOGY REPORT (SQ) ---
EXAM DESCRIPTION: CHEST 2 VIEWS COMPLETED DATE/TIME: 06/08/2018 4:35 pm REASON FOR STUDY: upper back pain COMPARISON: None. EXAM PARAMETERS: NUMBER OF VIEWS: two views TECHNIQUE: Digital Frontal and Lateral radiographic views of the chest acquired. RADIATION DOSE: NA LIMITATIONS: none FINDINGS: LUNGS AND PLEURA: No acute infiltrates or effusions. MEDIASTINUM AND HILAR STRUCTURES: No masses or contour abnormalities. HEART AND VASCULAR STRUCTURES: The heart is normal with normal pulmonary vasculature. BONES: Dorsal spondylosis is seen. OTHER: No other significant finding. IMPRESSION: NO ACUTE DISEASE. TECHNICAL DOCUMENTATION: JOB ID: [id number] [employer]- All Rights Reserved Reading location - IP/workstation name: [email or web address]
[2018-06-08 16:57] VITALS: BP 133/92
[2018-06-08] MEDS ORDERED: RIVAROXABAN 15 MG TABLET PO ONE (17:16)
[2018-06-09 09:22] LABS: PATH REVIEW PATHOLOGIST REVIEWED
== END 2018-06-08 17:27 | disposition home or self-care (01) ==
LOC: ER 13:23
DX: I82.812 Embolism and thrombosis of superficial veins of left lower extremity (principal); M79.605 Pain in left leg; F17.210 Nicotine dependence, cigarettes, uncomplicated
CPT/HCPCS: 36415; 71046; 80048; 85025; 93971; 99284

== ENCOUNTER 2018-08-05 04:00 | Emergency (ER) | payer BC ==
--- NOTE | 2018-08-05 04:48 | ER Document Report ---
ED GI/ - General Chief Complaint: Vaginal Bleeding Stated Complaint: VAGINAL BLEEDING Time Seen by Provider: 08/05/18 04:38 Mode of Arrival: Ambulatory Information source: Patient TRAVEL OUTSIDE OF THE [place] IN LAST 30 DAYS: No - HPI Patient complains to provider of: Vaginal bleeding Onset: Other - 2 days Timing/Duration: Worse Severity at maximum: Moderate Severity in ED: Moderate Pain Level: 2 Location: Pelvis Vaginal bleeding (Compared to normal period): Heavier Associated symptoms: Lightheaded Exacerbated by: Denies Relieved by: Denies Similar symptoms previously: Yes Recently seen / treated by doctor: No Notes: 08/05/18 04:47 Patient is a 48-year-old female presenting to the emergency room today complaining of pelvic cramping with heavy vaginal bleeding, she started her normal menstrual cycle yesterday, today the bleeding became heavier and in the last 3 hours she states that she has filled 2 pads and is wearing an adult diaper, patient is currently taking Xarelto secondary to a DVT that was diagnosed back in May, she reports that she felt very lightheaded and got diaphoretic when she went to stand up earlier - Related Data Allergies/Adverse Reactions: No Known Allergies Allergy (Verified 06/08/18 13:24) Past Medical History - General Information source: Patient - Social History Smoking Status: Unknown if Ever Smoked Family History: Arthritis, COPD, CVA, DM, Hypertension, Malignancy. denies: CAD , Hyperlipidemia, Thyroid Disfunction - Past Medical History Cardiac Medical History: Reports: Hx Hypertension Renal/ Medical History: Denies: Hx Peritoneal Dialysis Psychiatric Medical History: Reports: Hx Anxiety, Hx Depression Past Surgical History: Reports: Hx Tubal Ligation, Other - Ears surgery for hearing - Immunizations Immunizations up to date: No Hx Diphtheria, Pertussis, Tetanus Vaccination: No Review of Systems - Review of Systems Constitutional: Diaphoresis EENT: No symptoms reported Cardiovascular: Lightheaded Respiratory: No symptoms reported Gastrointestinal: No symptoms reported Genitourinary: No symptoms reported Female Genitourinary: Vaginal bleeding Musculoskeletal: No symptoms reported Skin: No symptoms reported Hematologic/Lymphatic: No symptoms reported Neurological/Psychological: No symptoms reported -: Yes All other systems reviewed and negative Physical Exam - Vital signs Vitals: Temp Pulse Resp BP Pulse Ox 98.1 F 92 16 120/93 H 99 08/05/18 04:01 08/05/18 04:01 08/05/18 04:01 08/05/18 04:01 08/05/18 04:01 Interpretation: Normal - General General appearance: Appears well, Alert - HEENT Head: Normocephalic, Atraumatic Eyes: Normal Pupils: PERRL - Respiratory Respiratory status: No respiratory distress Chest status: Nontender Breath sounds: Normal Chest palpation: Normal - Cardiovascular Rhythm: Regular Heart sounds: Normal auscultation Murmur: No - Abdominal Inspection: Normal Distension: No distension Bowel sounds: Normal Tenderness: Nontender Organomegaly: No organomegaly - Genitourinary External exam: Normal Vaginal bleeding: Heavy - Large clots Bimanuel exam: Normal - Back Back: Normal, Nontender - Extremities General upper extremity: Normal inspection, Nontender, Normal color, Normal ROM , Normal temperature General lower extremity: Normal inspection, Nontender, Normal color, Normal ROM , Normal temperature, Normal weight bearing. No: Flores's sign - Neurological Neuro grossly intact: Yes Cognition: Normal Orientation: AAOx4 [place] Coma Scale Eye Opening: Spontaneous [place] Coma Scale Verbal: Oriented [place] Coma Scale Motor: Obeys Commands [place] Coma Scale Total: 15 Speech: Normal Motor strength normal: LUE, RUE, LLE, RLE Sensory: Normal - Psychological Associated symptoms: Normal affect, Normal mood - Skin Skin Temperature: Warm Skin Moisture: Dry Skin Color: Normal Course - Re-evaluation Re-evalutation: 08/05/18 06:07 Patient resting comfortably with stable vital signs, lab and imaging findings discussed at bedside, hemoglobin is 11.5, coags are mildly elevated consistent with Xarelto use, I reviewed the chart from May when patient was diagnosed with a DVT and there does appear to be a occlusive thrombus in the left saphenous vein from the groin area to the lower knee, that is why she was placed on Xarelto, she does follow-up with hematology but is unaware as to why she developed an extensive DVT, I discussed reversal treatment such as TXA and/ or hormone therapy to stop the bleeding, however I think this would put patient at a greater risk of developing more serious complications and therefore we opted not to administer any of these treatments but instead to allow patient to go home today, continue to rest, if her bleeding should worsen or she has any additional symptoms she was advised to return to the emergency room immediately for reevaluation, otherwise follow up with her room audiovisual aids technician in 1-2 days, patient acknowledges understanding and agreement with this plan 08/05/18 06:30 Patient was discussed with on-call audiovisual aids technician, Dr. Lewis, who is in agreement with plan, he reports that since patient is fully anticoagulated it would be reasonable to give her hormone therapy to assist in slowing or stopping her bleeding - Vital Signs Vital signs: Temp Pulse Resp BP Pulse Ox 98.1 F 92 16 120/93 H 99 08/05/18 04:01 08/05/18 04:01 08/05/18 04:01 08/05/18 04:01 08/05/18 04:01 - Laboratory Result Diagrams: 08/05/18 05:20 08/05/18 05:20 Laboratory results interpreted by me: 08/05/18 08/05/18 05:20 05:20 Hgb 11.5 L Hct 35.2 L MCV 79 L MCH 25.8 L RDW 26.6 H PT 15.6 H APTT 38.4 H - Diagnostic Test Radiology reviewed: Image reviewed, Reports reviewed Discharge - Discharge Clinical Impression: Vaginal bleeding Condition: Stable Disposition: HOME, SELF-CARE Instructions: Vaginal Bleeding ([facility]) Additional Instructions: Follow up with your primary care provider and your audiovisual aids technician in one to 2 days. Return to the emergency room immediately if symptoms worsen or any additional concerns. Prescriptions: Medroxyprogesterone Acet [Provera 10 Mg Tablet] 10 mg PO DAILY #5 tablet Referrals: FAINA GRUBBS MD [Primary Care Provider] - Follow up as needed
[2018-08-05 05:33] LABS: ABSOLUTE EOSINOPHILS # (AUTO) 0.1 10^3/uL (0.0-0.6); ABSOLUTE MONOCYTES (AUTO) 0.5 10^3/uL (0.1-1.4); ABSOLUTE NEUT (AUTO) 3.6 10^3/uL (1.7-8.2); BASOPHILS % (AUTO) 0.8 % (0-2); HEMATOCRIT 35.2 % (36.0-47.0); HEMOGLOBIN 11.5 g/dL (12.0-15.5); LYMPHOCYTES % (AUTO) 32.9 % (13-45); MEAN CORPUSCULAR HEMOGLOBIN 25.8 pg (27.0-33.4); MEAN CORPUSCULAR HGB CONC 32.6 g/dL (32.0-36.0); MEAN CORPUSCULAR VOLUME 79 fl (80-97); MONOCYTES % (AUTO) 7.6 % (3-13); PLATELET COUNT 273 10^3/uL (150-450); RED BLOOD COUNT 4.44 10^6/uL (3.72-5.28); RED CELL DISTRIBUTION WIDTH 26.6 % (11.5-14.0); SEGMENTED NEUTROPHILS % (AUTO) 57.7 % (42-78); TOTAL CELLS COUNTED % (AUTO) 100 %; WHITE BLOOD COUNT 6.2 10^3/uL (4.0-10.5)
[2018-08-05 05:34] LABS: INTERNATIONAL RATION (INR) 1.18; PROTHROMBIN TIME 15.6 SEC (11.4-15.4)
[2018-08-05 05:35] LABS: PARTIAL THROMBOPLASTIN TIME 38.4 SEC (23.5-35.8)
[2018-08-05 05:46] LABS: ANION GAP 10 (5-19); BLOOD UREA NITROGEN 10 mg/dL (7-20); CALCIUM 9.5 mg/dL (8.4-10.2); CARBON DIOXIDE 25 mmol/L (22-30); CHLORIDE 103 mmol/L (98-107); GLUCOSE 104 mg/dL (75-110); POTASSIUM 4.1 mmol/L (3.6-5.0); SODIUM 138.1 mmol/L (137-145)
[2018-08-05 05:57] LABS: ANISOCYTOSIS 3+; OVALOCYTES SLIGHT; PLATELET COMMENT ADEQUATE; POIKILOCYTOSIS SLIGHT
--- NOTE | 2018-08-05 06:12 | RADIOLOGY REPORT (SQ) ---
CLINICAL DATA: 48-year-old female with cramping and bleeding. TECHNICAL DATA: Transvaginal imaging of the pelvis was performed. FINDINGS: There are no comparisons. The uterus is mildly enlarged and measures 11.1 x 5.9 x 7.4 cm. No focal uterine mass lesions are identified. The endometrial complex measures 3.9 cm in thickness. There is no endometrial fluid. The cervix measures 2.4 cm in length. There is a small cervical nabothian cyst. The ovaries are not well visualized on this examination. There is no free fluid in the pelvis. IMPRESSION: 1. Mildly enlarged uterus. 2. No focal uterine abnormalities are identified. There is a small cervical nabothian cyst. 3. Nonvisualization of the ovaries on this examination.
[2018-08-05] MEDS ORDERED: MEDROXYPROGESTERONE ACET 10 MG TABLET PO ONE (06:26)
[2018-08-05 07:13] VITALS: BP 117/89
== END 2018-08-05 07:35 | disposition home or self-care (01) ==
LOC: ER 04:00
DX: N93.9 Abnormal uterine and vaginal bleeding, unspecified (principal); R42 Dizziness and giddiness; R61 Generalized hyperhidrosis; R10.2 Pelvic and perineal pain; I10 Essential (primary) hypertension; I82.409 Acute embolism and thrombosis of unspecified deep veins of unspecified lower extremity; Z79.01 Long term (current) use of anticoagulants
CPT/HCPCS: 99284; 86900; 86901; 36415; 86850; 84703; 85025; 85610; 85730; 80048; 76856; 93976; J3490

== ENCOUNTER → 2018-12-09 | Outpatient (CLI) | payer BC ==
[~2018-12-09] MED LIST: FERRIC CARBOXYMALTOSE 750 MG in NORMAL SALINE 250 ML IV PRN; NORMAL SALINE 250 ML IV PRN
[2018-12-09 12:38] VITALS: BP 125/70
== END ==
LOC: II 11:36
PROVIDERS: ATTEND Internal Medicine Hematology & Oncology
PROC: 3E033GC Introduction of Other Therapeutic Substance into Peripheral Vein, Percutaneous Approach (ICD-10-PCS; principal; 2018-12-09)
DX: D50.9 Iron deficiency anemia, unspecified (principal); K90.9 Intestinal malabsorption, unspecified
CPT/HCPCS: J7050; J1439; 96365

== ENCOUNTER 2018-12-13 13:27 | Emergency (ER) | payer BC ==
[2018-12-13] MEDS ORDERED: MECLIZINE HCL 25 MG TABLET PO ONE (14:02)
--- NOTE | 2018-12-13 14:03 | ER Document Report ---
ED Medical Screen (RME) - General Chief Complaint: Dizziness Stated Complaint: DIZZY Time Seen by Provider: 12/13/18 13:56 Primary Care Provider: FAINA GRUBBS MD [Primary Care Provider] - Follow up as needed Notes: 48 years old female presents today with dizziness lightheadedness for the last 2 days starting from yesterday. Not associated with any nausea vomiting or headache denies any focal weakness numbness tingling. TRAVEL OUTSIDE OF THE [place] IN LAST 30 DAYS: No - Related Data Allergies/Adverse Reactions: No Known Allergies Allergy (Verified 12/13/18 13:54) Past Medical History - Social History Family history: None - Past Medical History Cardiac Medical History: Reports: Hx Hypertension Renal/ Medical History: Denies: Hx Peritoneal Dialysis Psychiatric Medical History: Reports: Hx Anxiety, Hx Depression Past Surgical History: Reports: Hx Tubal Ligation, Other - Ears surgery for hearing - Immunizations Immunizations up to date: No Hx Diphtheria, Pertussis, Tetanus Vaccination: No Physical Exam - Vital signs Vitals: Temp Pulse Resp BP Pulse Ox 98.5 F 89 12 138/83 H 97 12/13/18 13:33 12/13/18 13:33 12/13/18 13:33 12/13/18 13:33 12/13/18 13:33 Course - Vital Signs Vital signs: Temp Pulse Resp BP Pulse Ox 98.5 F 89 12 138/83 H 97 12/13/18 13:33 12/13/18 13:33 12/13/18 13:33 12/13/18 13:33 12/13/18 13:33 Doctor's Discharge - Discharge Referrals: FAINA GRUBBS MD [Primary Care Provider] - Follow up as needed
[2018-12-13 14:37] LABS: ABSOLUTE EOSINOPHILS # (AUTO) 0.1 10^3/uL (0.0-0.6); ABSOLUTE LYMPHOCYTES (AUTO) 2.2 10^3/uL (0.5-4.7); ABSOLUTE MONOCYTES (AUTO) 0.4 10^3/uL (0.1-1.4); ABSOLUTE NEUT (AUTO) 4.1 10^3/uL (1.7-8.2); BASOPHILS % (AUTO) 0.3 % (0-2); EOSINOPHILS % (AUTO) 1.9 % (0-6); HEMATOCRIT 39.9 % (36.0-47.0); HEMOGLOBIN 13.3 g/dL (12.0-15.5); LYMPHOCYTES % (AUTO) 32.2 % (13-45); MEAN CORPUSCULAR HGB CONC 33.4 g/dL (32.0-36.0); MEAN CORPUSCULAR VOLUME 81 fl (80-97); MONOCYTES % (AUTO) 6.1 % (3-13); PLATELET COUNT 249 10^3/uL (150-450); RED BLOOD COUNT 4.93 10^6/uL (3.72-5.28); RED CELL DISTRIBUTION WIDTH 14.7 % (11.5-14.0); SEGMENTED NEUTROPHILS % (AUTO) 59.5 % (42-78); TOTAL CELLS COUNTED % (AUTO) 100 %; WHITE BLOOD COUNT 6.9 10^3/uL (4.0-10.5)
[2018-12-13 14:55] LABS: ALANINE AMINOTRANSFERASE 16 U/L (9-52); ALBUMIN 4.1 g/dL (3.5-5.0); ALKALINE PHOSPHATASE 67 U/L (38-126); ANION GAP 9 (5-19); ASPARTATE AMINO TRANSFERASE 20 U/L (14-36); BILIRUBIN,DIRECT 0.2 mg/dL (0.0-0.4); BILIRUBIN,TOTAL 0.9 mg/dL (0.2-1.3); BLOOD UREA NITROGEN 14 mg/dL (7-20); CALCIUM 9.5 mg/dL (8.4-10.2); CARBON DIOXIDE 24 mmol/L (22-30); CHLORIDE 107 mmol/L (98-107); GLUCOSE 115 mg/dL (75-110); POTASSIUM 4.4 mmol/L (3.6-5.0); SODIUM 139.6 mmol/L (137-145)
--- NOTE | 2018-12-13 15:32 | ER Document Report ---
ED General - General Chief Complaint: Dizziness Stated Complaint: DIZZY Time Seen by Provider: 12/13/18 13:56 Primary Care Provider: FAINA GRUBBS MD [Primary Care Provider] - Follow up tomorrow Mode of Arrival: Ambulatory Information source: Patient Notes: Patient is a 48 year old female presenting to the ED with complaints of dizziness beginning last night around 6:00 pm. She describes the dizziness as a lightheadedness and the sensation as if she is going to pass out. She reports worsening of symptoms with a change in position or movement. She reports relief with eating last night. She states that she experienced another episode this morning when getting ready for work. She denies nausea, vomiting, fever, headache, vision changes, tinnitus, numbness, tingling, shortness of breath, and chest pain. Patient has a history of a DVT in May of 2018 and reports that she discontinued her Xarelto in August of 2018. She states that she is scheduled for an outpatient doppler U/S of her left leg this due to continued pain. She also has a history of anemia for which she receives iron transfusions. She denies recent illness, recent sick contacts, and recent travel. She is an occasional smoker. TRAVEL OUTSIDE OF THE [place] IN LAST 30 DAYS: No - HPI Onset: Yesterday - Last night Onset/Duration: Intermittent Quality of pain: No pain Exacerbated by: Movement Relieved by: Food - Related Data Allergies/Adverse Reactions: No Known Allergies Allergy (Verified 12/13/18 13:54) Past Medical History - General Information source: Patient - Social History Smoking Status: Current Some Day Smoker Cigarette use (# per day): Yes - 1-2 Chew tobacco use (# tins/day): No Smoking Education Provided: Yes - Smoking cessation counseling was provided for 4 minutes at the bedside Frequency of alcohol use: None Drug Abuse: None Lives with: Family Family History: Arthritis, COPD, CVA, DM, Hypertension, Malignancy Patient has suicidal ideation: No Patient has homicidal ideation: No - Past Medical History Cardiac Medical History: Reports: Hx DVT, Hx Hypertension Renal/ Medical History: Denies: Hx Peritoneal Dialysis Psychiatric Medical History: Reports: Hx Anxiety, Hx Depression Past Surgical History: Reports: Hx Tubal Ligation, Other - Ears surgery for hearing - Immunizations Immunizations up to date: No Hx Diphtheria, Pertussis, Tetanus Vaccination: No Review of Systems - Review of Systems Constitutional: denies: Fever EENT: denies: Double vision Cardiovascular: Dizziness, Lightheaded. denies: Chest pain, Palpitations, Dyspnea, Syncope Respiratory: denies: Short of breath Gastrointestinal: denies: Abdominal pain, Nausea, Vomiting Genitourinary: denies: Dysuria Musculoskeletal: denies: Muscle pain Skin: denies: Rash Hematologic/Lymphatic: Anemia Neurological/Psychological: denies: Confusion, Weakness, Gait changes, Loss of power, Headaches, Numbness, Tingling, Tremor -: Yes All other systems reviewed and negative Physical Exam - Vital signs Vitals: Temp Pulse Resp BP Pulse Ox 98.5 F 89 12 138/83 H 97 12/13/18 13:33 12/13/18 13:33 12/13/18 13:33 12/13/18 13:12/13/18 13:33 - Notes Notes: PHYSICAL EXAMINATION: GENERAL: Well-appearing, well-nourished and in no acute distress. HEAD: Atraumatic, normocephalic. EYES: Pupils equal round and reactive to light, extraocular movements intact, conjunctiva are normal. No nystagmus ENT: Nares patent, oropharynx clear without exudates. Moist mucous membranes. NECK: Normal range of motion, supple without lymphadenopathy LUNGS: Breath sounds clear to auscultation bilaterally and equal. No wheezes rales or rhonchi. HEART: Regular rate and rhythm without murmurs ABDOMEN: Soft, nontender, nondistended abdomen. No guarding, no rebound. No masses appreciated. Female : deferred Musculoskeletal: Normal range of motion, no pitting or edema. No cyanosis. NEUROLOGICAL: Cranial nerves grossly intact. Normal speech, normal gait. Normal sensory, motor exams. NIH 0 PSYCH: Normal mood, normal affect. SKIN: Warm, Dry, normal turgor, no rashes or lesions noted. Course - Re-evaluation Re-evalutation: Laboratory 12/13/18 12/13/18 12/13/18 14:15 14:15 14:15 WBC 6.9 RBC 4.93 Hgb 13.3 Hct 39.9 MCV 81 MCH 27.0 MCHC 33.4 RDW 14.7 H Plt Count 249 Seg Neutrophils % 59.5 Lymphocytes % 32.2 Monocytes % 6.1 Eosinophils % 1.9 Basophils % 0.3 Absolute Neutrophils 4.1 Absolute Lymphocytes 2.2 Absolute Monocytes 0.4 Absolute Eosinophils 0.1 Absolute Basophils 0.0 Sodium 139.6 Potassium 4.4 Chloride 107 Carbon Dioxide 24 Anion Gap 9 BUN 14 Creatinine 0.58 Est GFR ( Amer) > 60 Est GFR (Non-Af Amer) > 60 Glucose 115 H Calcium 9.5 Total Bilirubin 0.9 Direct Bilirubin 0.2 Neonat Total Bilirubin Not Reportable Neonat Direct Bilirubin Not Reportable Neonat Indirect Bili Not Reportable AST 20 ALT 16 Alkaline Phosphatase 67 Creatine Kinase 73 CK-MB (CK-2) Troponin I Total Protein 7.0 Albumin 4.1 12/13/18 14:15 WBC RBC Hgb Hct MCV MCH MCHC RDW Plt Count Seg Neutrophils % Lymphocytes % Monocytes % Eosinophils % Basophils % Absolute Neutrophils Absolute Lymphocytes Absolute Monocytes Absolute Eosinophils Absolute Basophils Sodium Potassium Chloride Carbon Dioxide Anion Gap BUN Creatinine Est GFR ( Amer) Est GFR (Non-Af Amer) Glucose Calcium Total Bilirubin Direct Bilirubin Neonat Total Bilirubin Neonat Direct Bilirubin Neonat Indirect Bili AST ALT Alkaline Phosphatase Creatine Kinase CK-MB (CK-2) 0.68 Troponin I < 0.012 Total Protein Albumin Chest X-Ray 12/13/18 15:17 IMPRESSION: NO ACUTE RADIOGRAPHIC FINDING IN THE CHEST. Temp Pulse Resp BP Pulse Ox 98.6 F 89 16 129/87 H 97 12/13/18 17:34 12/13/18 13:33 12/13/18 17:01 12/13/18 17:01 12/13/18 17:01 12/13/18 16:23 Ultrasound of the left lower extremity negative for DVT. 12/13/18 21:21 48-year-old female presents with complaint of lightheadedness. She describes it as feeling like she was going to pass out. Patient denies any associated chest pain, shortness of breath, dizziness. Patient does have a history of prior DVT. Treatment with Xarelto in August 2018. Vital signs reviewed and within normal limits upon arrival. Patient does not appear toxic or dehydrated. She is in no acute distress. Patient has a normal neurologic and physical exam. She ambulates without difficulty. She has no evidence of stroke, nystagmus, dysrhythmia. Patient declined meclizine or any other medications during her ED course. Venous Doppler was obtained and negative for DVT. EKG showed the patient to be in normal sinus rhythm without evidence of ST elevation or ischemia. CBC, CMP, cardiac enzymes are unremarkable. Patient was reassured. States she feels comfortable going home. Patient was evaluated and treated as appropriate for the patient's presenting symptoms and complaint, with consideration of any critical or life threatening conditions that may be associated with their obtained history and exam as noted above. All results were discussed with patient. Patient provided the opportunity to ask questions, and express concerns. Patient was educated on treatments based on their presumed diagnosis as noted above. At this time we will discharge the patient with return precautions and follow-up recommendations. Verbal discharge instructions given a the bedside. Medication warnings reviewed. Patient is in agreement with this plan and has verbalized understanding of return precautions. After careful consideration I feel that that patient can be safely discharged from the emergency department, they were advised to followup with a primary care physician in 2-3 days. Dictation on this chart was performed using voice recognition software and may result in unintended grammatical, spelling, syntax or errors. - Vital Signs Vital signs: Temp Pulse Resp BP Pulse Ox 98.6 F 89 16 129/87 H 97 12/13/18 17:34 12/13/18 13:33 12/13/18 17:01 12/13/18 17:01 12/13/18 17:01 - Laboratory Result Diagrams: 12/13/18 14:15 12/13/18 14:15 Laboratory results interpreted by me: 12/13/18 12/13/18 14:15 14:15 RDW 14.7 H Glucose 115 H - Diagnostic Test Radiology reviewed: Image reviewed, Reports reviewed - EKG Interpretation by Ma EKG shows normal: Sinus rhythm Rate: Normal Rhythm: NSR Discharge - Discharge Clinical Impression: Episodic lightheadedness Condition: Good Disposition: HOME, SELF-CARE Instructions: Dizziness ([facility]) Forms: Elevated Blood Pressure, Return to Work Referrals: FAINA GRUBBS MD [Primary Care Provider] - Follow up tomorrow
[2018-12-13 16:30] LABS: CREATINE KINASE MB 0.68 ng/mL (<4.55)
[2018-12-13 16:32] LABS: TROPONIN I < 0.012 ng/mL
--- NOTE | 2018-12-13 16:50 | RADIOLOGY REPORT (SQ) ---
EXAM DESCRIPTION: CHEST 2 VIEWS COMPLETED DATE/TIME: 12/13/2018 4:40 pm REASON FOR STUDY: dizziness COMPARISON: Two-view chest 06/08/2018 CT angio chest 06/17/2012 EXAM PARAMETERS: NUMBER OF VIEWS: two views TECHNIQUE: Digital Frontal and Lateral radiographic views of the chest acquired. RADIATION DOSE: NA LIMITATIONS: none FINDINGS: LUNGS AND PLEURA: No opacities, masses or pneumothorax. No pleural effusion. MEDIASTINUM AND HILAR STRUCTURES: No masses or contour abnormalities. HEART AND VASCULAR STRUCTURES: Heart normal size. No evidence for failure. BONES: No acute findings. HARDWARE: None in the chest. OTHER: No other significant finding. IMPRESSION: NO ACUTE RADIOGRAPHIC FINDING IN THE CHEST. TECHNICAL DOCUMENTATION: JOB ID: [id number] [employer]- All Rights Reserved Reading location - IP/workstation name: [email or web address]
[2018-12-13 17:30] VITALS: BP 129/87
--- NOTE | 2018-12-14 07:24 | RADIOLOGY REPORT (SQ) ---
EXAM DESCRIPTION: US EXTREMITY VEINS UNILATERAL COMPLETED DATE/TME: 12/13/2018 15:21 CLINICAL HISTORY: 48 years, Female, pain left leg / Hx clots COMPARISON: 06/08/2018 TECHNIQUE: Grayscale and color images of the left lower extremity were obtained. LIMITATIONS: None. FINDINGS: No evidence of an acute DVT within the left lower extremity. The veins demonstrate normal flow and compression. The greater saphenous vein is now patent. IMPRESSION: No evidence of a DVT within the left lower extremity. copyright 2010 [employer]- All Rights Reserved
--- NOTE | 2018-12-14 10:32 | EKG REPORT ---
SEVERITY:- NORMAL ECG - SINUS RHYTHM : Confirmed by: Osbaldo Blackman 14-Dec-2018 10:32:03
== END 2018-12-13 17:38 | disposition home or self-care (01) ==
LOC: ER 13:27
DX: R42 Dizziness and giddiness (principal); F17.210 Nicotine dependence, cigarettes, uncomplicated; I10 Essential (primary) hypertension; Z86.718 Personal history of other venous thrombosis and embolism; Z98.51 Tubal ligation status
CPT/HCPCS: 36415; 71046; 80053; 82550; 82553; 84484; 85025; 93005; 93010; 93971; 99284; 99406

== ENCOUNTER 2018-12-16 12:20 | Outpatient (CLI) | payer BC ==
[2018-12-16 12:40] VITALS: BP 115/75
== END 2018-12-16 13:27 | disposition home or self-care (01) ==
LOC: II 12:20 → 5TH 12:44 → II 13:27
PROVIDERS: ATTEND Internal Medicine Hematology & Oncology
PROC: 3E033GC Introduction of Other Therapeutic Substance into Peripheral Vein, Percutaneous Approach (ICD-10-PCS; principal; 2018-12-16)
DX: D50.9 Iron deficiency anemia, unspecified (principal); K90.9 Intestinal malabsorption, unspecified
CPT/HCPCS: 96365; J7050; J1439

== ENCOUNTER → 2019-01-12 | Outpatient (CLI) | payer BC ==
--- NOTE | 2019-01-13 08:50 | WOMENS IMAGING REPORT ---
EXAM DESCRIPTION: 3D SCREENING MAMMO BILAT COMPLETED DATE/TIME: 01/12/2019 2:36 pm REASON FOR STUDY: Z12.31 ROUTINE 3D BILATERAL SCREENING Z12.31 ENCNTR SCREEN MAMMOGRAM FOR MALIGNAN T NEOPLASM OF MARY COMPARISON: 2016 TECHNIQUE: Standard craniocaudal and mediolateral oblique views of each breast recorded using digita l acquisition and breast tomosynthesis. LIMITATIONS: None. FINDINGS: No masses, calcifications or architectural distortion. No areas of suspicion. Read with the assistance of CAD. .[facility] - R2 [employer]ova Version 1.3 .[facility] - R2 Cenova Version 2.[address] - R2 Cenova Version 2.4 .[facility] [place] - R2 Cenova Version 2.4 .[facility] - R2 Acid Maker Version 9.2 IMPRESSION: NORMAL MAMMOGRAM. BIRADS 1. BREAST DENSITY: b. There are scattered areas of fibroglandular density. BIRAD: 1 NEGATIVE RECOMMENDATION: ROUTINE SCREENING COMMENT: The patient has been notified of the results by letter per [place] requirements. Additional no tification policies are in place for contacting patient with suspicious or incomplete findings. Quality ID #[id number]: The [employer] recommends an annual screening mammogram for women aged 40 years or over. This facility utilizes a reminder system to ensure that all patients receive reminder letters, and/or direct phone calls for appointments. This includes reminders for routine scr eening mammograms, diagnostic mammograms, or other Breast Imaging Interventions when appropriate. Th is patient will be placed in the appropriate reminder system. The [employer] (ACR) has developed recommendations for screening MRI of the breast s in certain patient populations, to be used in conjunction with mammography. Breast MRI surveillanc e may be appropriate for women with more than 20% lifetime risk of developing breast cancer as deter mined by genetic testing, significant family history of the disease, or history of mantle radiation f or Hodgkins Disease. ACR Practice Guidelines 2008. DBT Technology DBT is a type of tomographic mammography. With conventional mammography, overlapping breast tissue ma y make lesions difficult to detect, even with good compression. DBT uses an x-ray tube that rotates a round the breast, taking images at different angles. These images are then combined to create thin sl ices of the breast that the radiologist can view as a 3D reconstruction. The [employer] unit can perform full-field digital mammograms (2D imaging); or DBT (3D imaging); or both, in a combination mode that quickly performs both the mammogram and the tomosynthesis scan while the breast is still compressed. PQRS 6045F: Fluoroscopic imaging is not utilized for breast tomosynthesis. TECHNICAL DOCUMENTATION: FINDING NUMBER: (1) ASSESSMENT: (1) JOB ID: [id number] [employer]- All Rights Reserved Reading location - IP/workstation name: REPRODUCTION TECHNICIAN-[facility]-
== END ==
LOC: WI 13:53
PROVIDERS: ATTEND Specialist
DX: Z12.31 Encounter for screening mammogram for malignant neoplasm of breast (principal)
CPT/HCPCS: 77063; 77067

== ENCOUNTER 2019-03-13 09:33 | Emergency (ER) | payer BC, OTHER ==
[2019-03-13 09:42] VITALS: BP 114/75
[2019-03-13] MEDS ORDERED: LORATADINE 10 MG TABLET PO ONE (10:03)
[2019-03-13] MEDS ORDERED: PSEUDOEPHEDRINE HCL 30 MG TABLET PO ONE (10:03)
[2019-03-13] MEDS ORDERED: GUAIFENESIN 600 MG TABLET.SA PO ONE (10:03)
--- NOTE | 2019-03-13 10:06 | ER Document Report ---
ED Respiratory Problem - General Chief Complaint: Cough Stated Complaint: COUGH Time Seen by Provider: 03/13/19 09:54 Primary Care Provider: TRISTEN WILSON MD [ACTIVE STAFF] - Follow up as needed Mode of Arrival: Ambulatory Information source: Patient Notes: 48-year-old female presented to ED for cough cold congestion she states fever a few days ago but she did not check her temperature. She has not had any fevers recently. She states that she is having trouble sleeping due to the coughing. Patient is alert oriented respirations regular and unlabored speaking in full sentences walks with even steady gait TRAVEL OUTSIDE OF THE [place] IN LAST 30 DAYS: No - HPI Patient complains to provider of: Cough Onset: Other Duration: Continuous - 3 days Initiating Event: URI Quality of pain: Achy Pain Level: 2 Context: Smoker Cough: Nonproductive Sputum amount: None Associated symptoms: Congestion, Cough, Fever - Subjective, Headache, PND, Runny nose, Sinus pain/pressure Similar symptoms previously: Yes Recently seen / treated by doctor: No - Related Data Allergies/Adverse Reactions: No Known Allergies Allergy (Verified 12/13/18 13:54) Past Medical History - General Information source: Patient - Social History Smoking Status: Current Every Day Smoker Cigarette use (# per day): Yes - 2 to 3 cigarettes a day Chew tobacco use (# tins/day): No Smoking Education Provided: Yes - 4 minutes Frequency of alcohol use: None Drug Abuse: None Lives with: Family Family History: Arthritis, COPD, CVA, DM, Hypertension, Malignancy Patient has suicidal ideation: No Patient has homicidal ideation: No - Past Medical History Cardiac Medical History: Reports: Hx DVT, Hx Hypertension Pulmonary Medical History: Reports: None EENT Medical History: Reports: None Neurological Medical History: Reports: None Endocrine Medical History: Reports: None Renal/ Medical History: Reports: None Malignancy Medical History: Reports: None GI Medical History: Reports: None Musculoskeletal Medical History: Reports None Skin Medical History: Reports None Psychiatric Medical History: Reports: Hx Anxiety, Hx Depression Traumatic Medical History: Reports: None Infectious Medical History: Reports: None Past Surgical History: Reports: Hx Tubal Ligation, Other - Ears surgery for hearing - Immunizations Immunizations up to date: No Hx Diphtheria, Pertussis, Tetanus Vaccination: No Review of Systems - Review of Systems Constitutional: Fever, Recent illness EENT: Nose congestion, Nose discharge, Sinus discharge Cardiovascular: No symptoms reported Respiratory: Cough Gastrointestinal: No symptoms reported Genitourinary: No symptoms reported Female Genitourinary: No symptoms reported Musculoskeletal: Other - Body aches Skin: No symptoms reported Hematologic/Lymphatic: No symptoms reported Neurological/Psychological: Headaches -: Yes All other systems reviewed and negative Physical Exam - Vital signs Vitals: Temp Pulse Resp BP Pulse Ox 98.5 F 90 20 114/75 97 03/13/19 09:41 03/13/19 09:41 03/13/19 09:41 03/13/19 09:41 03/13/19 09:41 Interpretation: Normal - General General appearance: Appears well, Alert - HEENT Head: Normocephalic, Atraumatic Eyes: Normal Pupils: PERRL Ears: Normal External canal: Normal Tympanic membrane: Normal Sinus: Normal Nasal: Purulent discharge, Swelling Pharynx: Post nasal drainage Neck: Normal - Respiratory Respiratory status: No respiratory distress Chest status: Nontender Breath sounds: Normal Chest palpation: Normal - Cardiovascular Rhythm: Regular Heart sounds: Normal auscultation Murmur: No - Abdominal Inspection: Normal Distension: No distension Bowel sounds: Normal Tenderness: Nontender Organomegaly: No organomegaly - Back Back: Normal, Nontender - Extremities General upper extremity: Normal inspection, Nontender, Normal color, Normal ROM, Normal temperature General lower extremity: Normal inspection, Nontender, Normal color, Normal ROM, Normal temperature, Normal weight bearing. No: Flores's sign - Neurological Neuro grossly intact: Yes Cognition: Normal Orientation: AAOx4 Fele[place] Coma Scale Eye Opening: Spontaneous [place] Coma Scale Verbal: Oriented Felecia Coma Scale Motor: Obeys Commands [place] Coma Scale Total: 15 Speech: Normal Motor strength normal: LUE, RUE, LLE, RLE Sensory: Normal - Psychological Associated symptoms: Normal affect, Normal mood - Skin Skin Temperature: Warm Skin Moisture: Dry Skin Color: Normal Course - Re-evaluation Re-evalutation: 03/13/19 10:04 After performing a Medical Screening Examination, I estimate there is LOW risk for ACUTE CORONARY SYNDROME, RESPIRATORY FAILURE, SEPSIS OR MENINGITIS, thus I consider the discharge disposition reasonable. I have reevaluated this patient multiple times and no significant life threatening changes are noted. The patient and I have discussed the diagnosis and risks, and we agree with discharging home with close follow-up. We also discussed returning to the Emergency Department immediately if new or worsening symptoms occur. We have discussed the symptoms which are most concerning (e.g., changing or worsening pain, trouble swallowing or breathing, neck stiffness, fever) that necessitate immediate return. - Vital Signs Vital signs: Temp Pulse Resp BP Pulse Ox 98.5 F 90 20 114/75 97 03/13/19 09:41 03/13/19 09:41 03/13/19 09:41 03/13/19 09:41 03/13/19 09:41 Discharge - Discharge Clinical Impression: URI (upper respiratory infection) Qualifiers: URI type: unspecified viral URI Qualified Code(s): J06.9 - Acute upper respiratory infection, unspecified Condition: Stable Disposition: HOME, SELF-CARE Instructions: Family Physicians / Practices Additional Instructions: UPPER RESPIRATORY ILLNESS: You have a viral infection of the respiratory passages -- a "cold." This common infection causes nasal congestion, drainage, and often sore throat and cough. It is highly contagious. The disease usually lasts about 10 to 14 days. There is no "cure" for the viral infection -- it must run its course. If there is a complication, such as bacterial infection in the nose, sinuses, middle ear, or bronchial tubes, antibiotics may be required. The antibiotics won't affect the virus. Drink plenty of fluids. A humidifier may help. An expectorant medication or decongestant may make you more comfortable. Use acetaminophen or ibuprofen for fever or aches. See the doctor if fever persists over two days, if there is any significant worsening of your symptoms, or if you simply fail to improve as expected. DECONGESTANT MEDICATION: A decongestant medicine has been suggested. Often this medicine is combined in the same tablet with an antihistamine or expectorant. This type of medicine is helpful in treating a bad cold or sinus condition, as well as in treatment of the nasal congestion of hay fever. It is not of much benefit for lung infections. Decongestant medicines are related to stimulants. They can cause an increase in blood pressure and heart rate. Persons with heart disease and high blood pressure should not take decongestants without discussing this with the physician. If you develop palpitations, chest pain, headache, or tremors, stop the medicine and consult your physician. COUGH-SUPPRESSANT & EXPECTORANT MEDICATION: You are to use a cough medication as needed for relief of symptoms. This medicine is a combination of an expectorant (to make the mucous thinner and more easily "coughed up") and a cough suppressant (to reduce the frequency of coughing). The cough-suppressant medicine is related to narcotics. You may experience mild nausea and sleepiness. Some patients who are very sensitive to narcotics may have stomach pain from this medicine. Taking the medicine with food reduces these side effects. Do not drive or work with machinery until you know how this medicine affects you. The expectorant should have no side effects. Iodine-containing e xpectorants (such as organidin) should not be taken by persons with active thyroid disease unless approved by your doctor. Call the doctor if you develop shortness of breath, hives, rash, itching, lightheadedness, or severe nausea and vomiting. USE OF ACETAMINOPHEN (Tylenol): Acetaminophen may be taken for pain relief or fever control. It's much safer than aspirin, offering a wider range of "safe" dosages. It is safe during . Some brand names are Tylenol, Panadol, Datril, Anacin 3, Tempra, and Liquiprin. Acetaminophen can be repeated every four hours. The following are maximum recommended dosages: >89 pounds or adults 650 mg to 900 mg Acetaminophen can be repeated every four hours. Maximum dose not to exceed 4000 mg a day. SMOKING: If you smoke, you should stop smoking. The tar and chemicals in cigarette smoke are harmful. Smoking has been shown to cause: emphysema chronic bronchitis lung cancer mouth and throat cancer stomach and pancreas cancer premature aging defects In addition, smoking increases ear and lung infections in children of smokers. Medicines that can help with your cough cold congestion are Flonase nasal spray, Claritin 10 mg by mouth, Sudafed 30 mg by mouth, Mucinex 600 mg by mouth, saline nasal spray, salt and soda solution gargles, and cough drops. Salt and soda solution 1 quart of water 1 tablespoon of salt 1 teaspoon of baking soda Mixed 3 ingredients together and boil for 1 minute Placed in a covered quart jar Use 1/2 ounce of cold solution to gargle 3 times a day FOLLOW-UP CARE: If you have been referred to a physician for follow-up care, call the physicians office for an appointment as you were instructed or within the next two days. If you experience worsening or a significant change in your symptoms, notify the physician immediately or return to the Emergency Department at any time for re-evaluation. Forms: Smoking Cessation Education Referrals: TRISTEN WILSON MD [ACTIVE STAFF] - Follow up as needed
== END 2019-03-13 10:12 | disposition home or self-care (01) ==
LOC: ER 09:33
DX: J06.9 Acute upper respiratory infection, unspecified (principal); B97.89 Other viral agents as the cause of diseases classified elsewhere; R05 Cough; R51 Headache; R09.82 Postnasal drip; R09.89 Other specified symptoms and signs involving the circulatory and respiratory systems; J34.89 Other specified disorders of nose and nasal sinuses; I10 Essential (primary) hypertension; F17.210 Nicotine dependence, cigarettes, uncomplicated; Z71.6 Tobacco abuse counseling
CPT/HCPCS: 99283

== ENCOUNTER 2019-07-12 16:43 | Emergency (ER) | payer BC, OTHER ==
[2019-07-12] MEDS ORDERED: DIPHENHYDRAMINE HCL 25 MG CAPSULE PO ONE (16:59)
--- NOTE | 2019-07-12 17:01 | ER Document Report ---
ED Medical Screen (RME) - General Chief Complaint: Chest Pain Stated Complaint: POSSIBLE INSECT BITE/CHEST,ARM PAIN Time Seen by Provider: 07/12/19 16:55 Mode of Arrival: Ambulatory Information source: Patient Notes: Patient presents emergency department with complaints of right upper back right arm right under her arm itchiness right-sided chest wall itchy pain. Patient reports she has been itching her back with a coat wallpaper hanger is so itchy. 2 small insect bites noted to to the back of her right arm. Patient chest wall tender she denies chest pain. Multiple scratches noted to patient's back where she has been itching. 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 No fever vomiting diarrhea. Patient is not a diabetic. I have greeted and performed a rapid initial assessment of this patient. A comprehensive ED assessment and evaluation of the patient, analysis of test results and completion of the medical decision making process will be conducted by additional ED providers. Dictation of this chart was performed using voice recognition software; therefore, there may be some unintended grammatical errors. TRAVEL OUTSIDE OF THE [place] IN LAST 30 DAYS: No - Related Data Allergies/Adverse Reactions: No Known Allergies Allergy (Verified 12/13/18 13:54) Past Medical History - Social History Family history: None - Past Medical History Cardiac Medical History: Reports: Hx DVT, Hx Hypertension Renal/ Medical History: Denies: Hx Peritoneal Dialysis Psychiatric Medical History: Reports: Hx Anxiety, Hx Depression Past Surgical History: Reports: Hx Tubal Ligation, Other - Ears surgery for hearing - Immunizations Immunizations up to date: No Hx Diphtheria, Pertussis, Tetanus Vaccination: No
[2019-07-12] MEDS ORDERED: HYDROXYZINE PAMOATE 50 MG CAPSULE PO ONE (19:01)
--- NOTE | 2019-07-12 19:10 | ER Document Report ---
ED Skin Rash/Insect Bite/Abscs - General Chief Complaint: Itching Stated Complaint: POSSIBLE INSECT BITE/CHEST,ARM PAIN Time Seen by Provider: 07/12/19 16:55 Mode of Arrival: Ambulatory Information source: Patient TRAVEL OUTSIDE OF THE [place] IN LAST 30 DAYS: No - Related Data Allergies/Adverse Reactions: No Known Allergies Allergy (Verified 12/13/18 13:54) Past Medical History - General Information source: Patient - Social History Smoking Status: Current Every Day Smoker Frequency of alcohol use: None Drug Abuse: None Family History: Arthritis, COPD, CVA, DM, Hypertension, Malignancy Patient has suicidal ideation: No Patient has homicidal ideation: No - Past Medical History Cardiac Medical History: Reports: Hx DVT, Hx Hypertension Renal/ Medical History: Denies: Hx Peritoneal Dialysis Psychiatric Medical History: Reports: Hx Anxiety, Hx Depression Past Surgical History: Reports: Hx Tubal Ligation, Other - Ears surgery for hearing - Immunizations Immunizations up to date: No Hx Diphtheria, Pertussis, Tetanus Vaccination: No Review of Systems - Review of Systems Constitutional: No symptoms reported EENT: No symptoms reported Cardiovascular: No symptoms reported Respiratory: No symptoms reported Gastrointestinal: No symptoms reported Genitourinary: No symptoms reported Female Genitourinary: No symptoms reported Musculoskeletal: No symptoms reported Skin: Other - Few spots on the right upper arm that have been scratched one very small area of scratched red raised areas to the upper right back patient states she has been scratching her back with a coat record changer assembler it is so itchy. There are few small insect bites noted on her back and arm. There are no signs and symptoms of shingles which is what the patient is asking if this is. I did give her instructions on shingles and told her that she does not have shingles. Hematologic/Lymphatic: No symptoms reported Neurological/Psychological: No symptoms reported -: Yes All other systems reviewed and negative Physical Exam - Vital signs Vitals: Temp Pulse Resp BP Pulse Ox 97.8 F 88 17 136/92 H 97 07/12/19 16:49 07/12/19 16:49 07/12/19 16:49 07/12/19 16:49 07/12/19 16:49 Interpretation: Normal - General General appearance: Appears well, Alert - HEENT Head: Normocephalic, Atraumatic Eyes: Normal Pupils: PERRL - Respiratory Respiratory status: No respiratory distress Chest status: Nontender Breath sounds: Normal Chest palpation: Normal - Cardiovascular Rhythm: Regular Heart sounds: Normal auscultation Murmur: No - Abdominal Inspection: Normal Distension: No distension Bowel sounds: Normal Tenderness: Nontender Organomegaly: No organomegaly - Back Back: Normal, Nontender - Extremities General upper extremity: Normal inspection, Nontender, Normal color, Normal ROM, Normal temperature General lower extremity: Normal inspection, Nontender, Normal color, Normal ROM, Normal temperature, Normal weight bearing. No: Flores's sign - Neurological Neuro grossly intact: Yes Cognition: Normal Orientation: AAOx4 Felecia Coma Scale Eye Opening: Spontaneous [place] Coma Scale Verbal: Oriented [place] Coma Scale Motor: Obeys Commands Felecia Coma Scale Total: 15 Speech: Normal Motor strength normal: LUE, RUE, LLE, RLE Sensory: Normal - Psychological Associated symptoms: Normal affect, Normal mood - Skin Skin Temperature: Warm Skin Moisture: Dry Skin Color: Normal Location of irregularity: Extremities - A few small insect bites to her right arm and upper back there are multiple scratches to multiple areas of her back and arm there are no signs and symptoms of shingles Course - Re-evaluation Re-evalutation: 07/12/19 21:40 Patient was given a prescription for hydroxyzine to help with her itching. She does not have any signs and symptoms of shingles or anything else. There are very few insect bite type areas to her right upper arm and back that have been well scratched. - Vital Signs Vital signs: Temp Pulse Resp BP Pulse Ox 97.8 F 88 17 136/92 H 97 07/12/19 16:49 07/12/19 16:49 07/12/19 16:49 07/12/19 16:49 07/12/19 16:49 Discharge - Discharge Clinical Impression: Rash and nonspecific skin eruption Condition: Stable Disposition: HOME, SELF-CARE Instructions: Family Physicians / Practices Additional Instructions: Your rash does not look like shingles at this time. I am not able to tell you exactly what your rash is caused from but I do not see anything that looks like shingles at this time. Shingles You do not have shingles. Shingles is caused by the chicken pox virus, The virus has been surviving dormant in a nerve cell since you had chicken pox years ago. The virus has spread down a nerve root to reach the skin. Typically, an band-like area of pain and skin sensitivity develops, then small blisters erupt in the area. Shingles lasts two or three weeks, but sometimes leaves persistent pain. You are contagious -- you can give children chicken pox. But you can't give anyone shingles. Antiviral medicines (such as acyclovir or famciclovir) can help, but the rash usually worsens for about a week. Pain medication is often given if the area hurts. Antihistamines such as Benadryl may be necessary for itching if it does not respond to soda baths and calamine lotion. Sometimes cortisone medicine or nerve-block shots are necessary if pain is severe. If the area remains severely painful as the sores heal, or if you suspect an infection developing in the sores, see your doctor. Ibuprofen Ibuprofen is an excellent, safe drug for pain control. In addition, it has potent antiinflammatory effects which are beneficial, especially in the treatment of injuries, arthritis, or tendonitis. It's best to take ibuprofen with food. Persons with ulcer disease or allergy to aspirin should notify their physician of this before taking ibuprofen. Take the medication exactly as prescribed. Don't take additional doses unless instructed to do so by your doctor. If you develop wheezing, shortness of breath, hives, faintness, stomach pain, vomiting, or dark black stools, return for re-evaluation at once. FOLLOW-UP CARE: If you have been referred to a physician for follow-up care, call the physicians office for an appointment as you were instructed or within the next two days. If you experience worsening or a significant change in your symptoms, notify the physician immediately or return to the Emergency Department at any time for re-evaluation. Prescriptions: Hydroxyzine Pamoate [Vistaril 50 mg Capsule] 50 mg PO Q8HP PRN #20 capsule PRN Reason: Forms: Elevated Blood Pressure, Smoking Cessation Education, Return to Work
[2019-07-12 19:14] VITALS: BP 121/89
== END 2019-07-12 19:19 | disposition home or self-care (01) ==
LOC: ER 16:43
DX: R21 Rash and other nonspecific skin eruption (principal); R07.9 Chest pain, unspecified; M79.601 Pain in right arm; W57.XXXA Bitten or stung by nonvenomous insect and other nonvenomous arthropods, initial encounter; F17.200 Nicotine dependence, unspecified, uncomplicated; I10 Essential (primary) hypertension
CPT/HCPCS: 99281

== ENCOUNTER 2020-08-18 13:19 | Emergency (ER) | payer BC ==
--- NOTE | 2020-08-18 13:57 | ER Document Report ---
ED Medical Screen (RME) - General Chief Complaint: Leg Pain Stated Complaint: LEFT LEG PAIN Time Seen by Provider: 08/18/20 13:47 Primary Care Provider: KATE ENCINAS MD [Primary Care Provider] - Follow up as needed Mode of Arrival: Wheelchair Information source: Patient Notes: 50-year-old female presented to ED for complaint of left leg pain for about 2 years when she fell and ended up with a blood clot. She states over the last 2 months the pain has started getting worse behind her leg and it feels almost like when she had a blood clot. She states for the last 1 to 2 days her kneecap is started really hurting but she is also had increased pain and pressure behind her knee and upper leg like she did when she had a blood clot she also has cramping to the leg. Will get blood urine Doppler and an x-ray of the knee. She states when she first injured her knee they wanted to do physical therapy and she wanted them to do an MRI so she did not do the physical therapy and she did not get the MRI. I have greeted and performed a rapid initial assessment of this patient. A comprehensive ED assessment and evaluation of the patient, analysis of test results and completion of medical decision making process will be conducted by an additional ED providers. TRAVEL OUTSIDE OF THE [place] IN LAST 30 DAYS: No - Related Data Allergies/Adverse Reactions: No Known Allergies Allergy (Verified 12/13/18 13:54) Past Medical History - Social History Cigarette use (# per day): No Frequency of alcohol use: None Drug Abuse: None Lives with: Family Family history: None - Past Medical History Cardiac Medical History: Reports: Hx DVT, Hx Hypertension Renal/ Medical History: Denies: Hx Peritoneal Dialysis Musculoskeltal Medical History: Reports Hx Musculoskeletal Trauma Psychiatric Medical History: Reports: Hx Anxiety, Hx Depression Past Surgical History: Reports: Hx Tubal Ligation, Other - Ears surgery for hearing - Immunizations Immunizations up to date: No Hx Diphtheria, Pertussis, Tetanus Vaccination: No Physical Exam - Vital signs Vitals: Temp Pulse Resp BP Pulse Ox 99.7 F 96 18 113/76 95 08/18/20 13:48 08/18/20 13:48 08/18/20 13:48 08/18/20 13:48 08/18/20 13:48 Course - Vital Signs Vital signs: Temp Pulse Resp BP Pulse Ox 99.7 F 96 18 113/76 95 08/18/20 13:48 08/18/20 13:48 08/18/20 13:48 08/18/20 13:48 08/18/20 13:48 Doctor's Discharge - Discharge Referrals: KATE ENCINAS MD [Primary Care Provider] - Follow up as needed
--- NOTE | 2020-08-18 14:48 | RADIOLOGY REPORT (SQ) ---
EXAM DESCRIPTION: KNEE LEFT 4 VIEW IMAGES COMPLETED DATE/TIME: 08/18/2020 2:25 pm REASON FOR STUDY: pain to knee COMPARISON: None. NUMBER OF VIEWS: Four views. TECHNIQUE: AP, lateral, and both oblique radiographic images acquired of the left knee. LIMITATIONS: None. FINDINGS: MINERALIZATION: Normal. BONES: No acute fracture or dislocation. No worrisome bone lesions. JOINT: No effusion. SOFT TISSUES: No soft tissue swelling. No radio-opaque foreign body. OTHER: No other significant finding. IMPRESSION: NEGATIVE STUDY OF THE LEFT KNEE. NO RADIOGRAPHIC EVIDENCE OF ACUTE INJURY. TECHNICAL DOCUMENTATION: JOB ID: [id number] 2010 [employer]- All Rights Reserved Reading location - IP/workstation name: [email or web address]
--- NOTE | 2020-08-18 15:42 | RADIOLOGY REPORT (SQ) ---
EXAM DESCRIPTION: VENOUS UNILATERAL LOWER IMAGES COMPLETED DATE/TIME: 08/18/2020 3:29 pm REASON FOR STUDY: increase pain left leg hx of dvt COMPARISON: None. TECHNIQUE: Dynamic and static schaffer scale and color images acquired of the left leg venous system. Se lected spectral images acquired with additional compression and augmentation maneuvers. The contralat eral common femoral vein and saphenofemoral junction were also imaged. Images stored on PACS. LIMITATIONS: None. FINDINGS: COMMON FEMORAL: Normal phasicity, compression and augmentation. No visualized echogenic ma terial on schaffer scale. No defects on color images. FEMORAL: Normal compression and augmentation. No visualized echogenic material on schaffer scale. No defe cts on color images. POPLITEAL: Normal compression, augmentation. No visualized echogenic material on schaffer scale. No defec ts on color images. CALF VESSELS: Normal compression, augmentation. No visualized echogenic material on schaffer scale. No de fects on color images. GSV and SSV: Normal compression, augmentation. No visualized echogenic material on schaffer scale. No def ects on color images. ANY DEEP VENOUS INSUFFICIENCY: Not evaluated. ANY EVIDENCE OF POPLITEAL CYST: No. OTHER: No other significant finding. CONTRALATERAL COMMON FEMORAL VEIN AND SAPHENOFEMORAL JUNCTION: Normal phasicity, compression and augmentation. No visualized echogenic material on schaffer scale. No de fects on color images. IMPRESSION: NO EVIDENCE DVT OR SVT IN THE LEFT LEG. TECHNICAL DOCUMENTATION: JOB ID: [id number] 2010 [employer]- All Rights Reserved Reading location - IP/workstation name: [email or web address]
[2020-08-18 15:49] LABS: ABSOLUTE EOSINOPHILS # (AUTO) 0.1 10^3/uL (0.0-0.6); ABSOLUTE LYMPHOCYTES (AUTO) 2.3 10^3/uL (0.5-4.7); ABSOLUTE MONOCYTES (AUTO) 0.5 10^3/uL (0.1-1.4); ABSOLUTE NEUT (AUTO) 4.1 10^3/uL (1.7-8.2); BASOPHILS % (AUTO) 0.4 % (0-2); EOSINOPHILS % (AUTO) 1.6 % (0-6); HEMATOCRIT 37.8 % (36.0-47.0); HEMOGLOBIN 12.7 g/dL (12.0-15.5); LYMPHOCYTES % (AUTO) 32.4 % (13-45); MEAN CORPUSCULAR HEMOGLOBIN 26.7 pg (27.0-33.4); MEAN CORPUSCULAR HGB CONC 33.7 g/dL (32.0-36.0); MEAN CORPUSCULAR VOLUME 79 fl (80-97); MONOCYTES % (AUTO) 7.6 % (3-13); PLATELET COUNT 311 10^3/uL (150-450); RED BLOOD COUNT 4.78 10^6/uL (3.72-5.28); RED CELL DISTRIBUTION WIDTH 13.9 % (11.5-14.0); TOTAL CELLS COUNTED % (AUTO) 100 %; WHITE BLOOD COUNT 7.1 10^3/uL (4.0-10.5)
[2020-08-18 15:51] LABS: INTERNATIONAL RATION (INR) 0.99; PROTHROMBIN TIME 13.3 SEC (11.4-15.4)
[2020-08-18 15:52] LABS: PARTIAL THROMBOPLASTIN TIME 33.5 SEC (23.5-35.8)
[2020-08-18 15:53] LABS: APPEARANCE,URINE CLOUDY; BILIRUBIN,URINE NEGATIVE (NEGATIVE); COLOR,URINE YELLOW; GLUCOSE, URINE NEGATIVE (NEGATIVE); KETONES,URINE NEGATIVE (NEGATIVE); LEUKOCYTE ESTERASE,URINE TRACE (NEGATIVE); NITRITE,URINE NEGATIVE (NEGATIVE); PROTEIN,URINE 30 mg/dL (NEGATIVE); URINE SPECIFIC GRAVITY 1.029
[2020-08-18 16:03] LABS: URINE AMPHETAMINES SCREEN NEGATIVE; URINE BARBITURATES SCREEN NEGATIVE; URINE BENZODIAZEPINES SCREEN NEGATIVE; URINE COCAINE SCREEN NEGATIVE; URINE MARIJUANA (THC) SCREEN NEGATIVE; URINE METHADONE SCREEN NEGATIVE; URINE PHENCYCLIDINE SCREEN NEGATIVE
[2020-08-18 16:05] LABS: ALBUMIN 4.2 g/dL (3.5-5.0); ALKALINE PHOSPHATASE 90 U/L (38-126); ANION GAP 11 (5-19); ASPARTATE AMINO TRANSFERASE 23 U/L (14-36); BILIRUBIN,DIRECT 0.1 mg/dL (0.0-0.4); BILIRUBIN,TOTAL 0.7 mg/dL (0.2-1.3); BLOOD UREA NITROGEN 14 mg/dL (7-20); CALCIUM 9.8 mg/dL (8.4-10.2); CARBON DIOXIDE 26 mmol/L (22-30); CHLORIDE 102 mmol/L (98-107); GLUCOSE 114 mg/dL (75-110); PHOSPHORUS 3.1 mg/dL (2.5-4.5); POTASSIUM 4.2 mmol/L (3.6-5.0); TOTAL PROTEIN 7.2 g/dL (6.3-8.2)
--- NOTE | 2020-08-18 16:47 | ER Document Report ---
ED Extremity Problem, Lower - General Chief Complaint: Leg Pain Stated Complaint: LEFT LEG PAIN Time Seen by Provider: 08/18/20 13:47 Primary Care Provider: JACKIE RANDOLPH JR, DO [ACTIVE PROVISIONAL STAFF] - Follow up as needed JEET NAIK MD [ACTIVE STAFF] - Follow up as needed LAURA HAM DO [ACTIVE STAFF] - Follow up as needed Mode of Arrival: Wheelchair Notes: Patient is a 50-year-old female who presents emergency department with a chief complaint of left leg pain. Patient reports she is having left knee pain. States that she has similar symptoms in the past when she had a DVT. Patient states also 1 year ago she fell striking her kneecap on the ground. Patient reports since then she has had intermittent left knee pain. Patient reports the pain is primarily located on the kneecap. Patient reports she thinks she overdid it last night after walking 2 miles [id number] with her grand kids. States that it hurts the worst when she attempts to bend her knee. TRAVEL OUTSIDE OF THE [place] IN LAST 30 DAYS: No - Related Data Allergies/Adverse Reactions: No Known Allergies Allergy (Verified 12/13/18 13:54) Past Medical History - General Information source: Patient - Social History Smoking Status: Unknown if Ever Smoked Cigarette use (# per day): No Frequency of alcohol use: None Drug Abuse: None Lives with: Family Family History: Arthritis, COPD, CVA, DM, Hypertension, Malignancy - Past Medical History Cardiac Medical History: Reports: Hx DVT, Hx Hypertension Pulmonary Medical History: Reports: None EENT Medical History: Reports: None Neurological Medical History: Reports: None Endocrine Medical History: Reports: None Renal/ Medical History: Reports: None. Denies: Hx Peritoneal Dialysis Malignancy Medical History: Reports: None GI Medical History: Reports: None Musculoskeletal Medical History: Reports Hx Musculoskeletal Trauma Skin Medical History: Reports None Psychiatric Medical History: Reports: Hx Anxiety, Hx Depression Traumatic Medical History: Reports: None Infectious Medical History: Reports: None Past Surgical History: Reports: Hx Tubal Ligation, Other - Ears surgery for hearing - Immunizations Immunizations up to date: No Hx Diphtheria, Pertussis, Tetanus Vaccination: No Review of Systems - Review of Systems Constitutional: No symptoms reported EENT: No symptoms reported Cardiovascular: No symptoms reported Respiratory: No symptoms reported Gastrointestinal: No symptoms reported Genitourinary: No symptoms reported Female Genitourinary: No symptoms reported Musculoskeletal: See HPI Skin: No symptoms reported Hematologic/Lymphatic: No symptoms reported Neurological/Psychological: No symptoms reported Physical Exam - Vital signs Vitals: Temp Pulse Resp BP Pulse Ox 99.7 F 96 18 113/76 95 08/18/20 13:48 08/18/20 13:48 08/18/20 13:48 08/18/20 13:48 08/18/20 13:48 Interpretation: Normal - Notes Notes: GENERAL: Well-appearing, well-nourished and in no acute distress. HEAD: Atraumatic, normocephalic. EYES: Pupils equal round and reactive to light, extraocular movements intact, sclera anicteric, conjunctiva are normal. ENT: TMs normal, nares patent, oropharynx clear without exudates. Moist mucous membranes. NECK: Normal range of motion, supple without lymphadenopathy or JVD. LUNGS: Breath sounds clear to auscultation bilaterally and equal. No wheezes rales or rhonchi. HEART: Regular rate and rhythm without murmurs, rubs or gallops. ABDOMEN: Soft, nontender, normoactive bowel sounds. No guarding, no rebound. No masses appreciated. BACK: No cervical, thoracic, lumbar midline tenderness. No saddle anesthesia, normal distal neurovascular exam. GENITOURINARY: Deferred. EXTREMITIES: Slight tenderness to the medial aspect of the left knee as well as patella. There is no edema, ecchymosis, erythema or deformity. Patient can fully extend her left leg without any pain. Patient has slight discomfort when attempting to flex at the knee joint. No tenderness to the posterior aspect of the left knee. No calf pain, tenderness to palpation or erythema. NEUROLOGICAL: Cranial nerves II through XII grossly intact. Normal speech, normal gait. PSYCH: Normal mood, normal affect. SKIN: Warm, Dry, normal turgor, no rashes or lesions noted. Course - Re-evaluation Re-evalutation: 08/18/20 16:50 X-ray was negative for acute abnormality such as a fracture or dislocation. Patient does not have a DVT that was noted on the Doppler. It appears that the patient has a chronic issue and she does need to follow-up with orthopedics. She states that this pain has been present intermittently for 1 year and states that it has flared up since walking 2 miles last night. Patient did not take any home medications or [id number] medications for her discomfort. Will place multiple referrals to orthopedics as well as giving the patient a knee immobilizer as well as crutches. Will prescribe naproxen. - Vital Signs Vital signs: Temp Pulse Resp BP Pulse Ox 97.5 F 88 16 142/86 H 100 08/18/20 17:45 08/18/20 17:45 08/18/20 17:45 08/18/20 17:45 08/18/20 17:45 - Laboratory Result Diagrams: 08/18/20 15:30 08/18/20 15:30 Laboratory results interpreted by me: 08/18/20 08/18/20 08/18/20 15:30 15:30 15:30 MCV 79 L MCH 26.7 L Glucose 114 H Urine Protein 30 H Urine Urobilinogen 4.0 H Ur Leukocyte Esterase TRACE H 08/18/20 16:52 Laboratory 08/18/20 08/18/20 08/18/20 15:30 15:30 15:30 WBC 7.1 RBC 4.78 Hgb 12.7 Hct 37.8 MCV 79 L MCH 26.7 L MCHC 33.7 RDW 13.9 Plt Count 311 Lymph % (Auto) 32.4 [place] % (Auto) 7.6 Eos % (Auto) 1.6 Baso % (Auto) 0.4 Absolute Neuts (auto) 4.1 Absolute Lymphs (auto) 2.3 Absolute Monos (auto) 0.5 Absolute Eos (auto) 0.1 Absolute Basos (auto) 0.0 Seg Neutrophils % 58.0 PT 13.3 INR 0.99 APTT 33.5 Sodium 138.8 Potassium 4.2 Chloride 102 Carbon Dioxide 26 Anion Gap 11 BUN 14 Creatinine 0.75 Est GFR ( Amer) > 60 Est GFR (MDRD) Non-Af > 60 Glucose 114 H Calcium 9.8 Phosphorus 3.1 Magnesium 2.1 Total Bilirubin 0.7 Direct Bilirubin 0.1 Neonat Total Bilirubin Not Reportable Neonat Direct Bilirubin Not Reportable Neonat Indirect Bili Not Reportable AST 23 ALT 15 Alkaline Phosphatase 90 Total Protein 7.2 Albumin 4.2 Urine Color Urine Appearance Urine pH Ur Specific [place] Urine Protein Urine Glucose (UA) Urine Ketones Urine Blood Urine Nitrite Urine Bilirubin Urine Urobilinogen Ur Leukocyte Esterase Urine WBC (Auto) Urine RBC (Auto) U Hyaline Cast (Auto) Urine Bacteria (Auto) Squamous Epi Cells Auto Urine Mucus (Auto) Urine Ascorbic Acid Urine Opiates Screen Urine Methadone Screen Ur Barbiturates Screen Ur Phencyclidine Scrn Ur Amphetamines Screen U Benzodiazepines Scrn Urine Cocaine Screen U Marijuana (THC) Screen 08/18/20 08/18/20 15:30 15:30 WBC RBC Hgb Hct MCV MCH MCHC RDW Plt Count Lymph % (Auto) [place] % (Auto) Eos % (Auto) Baso % (Auto) Absolute Neuts (auto) Absolute Lymphs (auto) Absolute Monos (auto) Absolute Eos (auto) Absolute Basos (auto) Seg Neutrophils % PT INR APTT Sodium Potassium Chloride Carbon Dioxide Anion Gap BUN Creatinine Est GFR ( Amer) Est GFR (MDRD) Non-Af Glucose Calcium Phosphorus Magnesium Total Bilirubin Direct Bilirubin Neonat Total Bilirubin Neonat Direct Bilirubin Neonat Indirect Bili AST ALT Alkaline Phosphatase Total Protein Albumin Urine Color YELLOW Urine Appearance CLOUDY Urine pH 5.0 Ur Specific [place] 1.029 Urine Protein 30 H Urine Glucose (UA) NEGATIVE Urine Ketones NEGATIVE Urine Blood NEGATIVE Urine Nitrite NEGATIVE Urine Bilirubin NEGATIVE Urine Urobilinogen 4.0 H Ur Leukocyte Esterase TRACE H Urine WBC (Auto) 4 Urine RBC (Auto) 3 U Hyaline Cast (Auto) 1 Urine Bacteria (Auto) TRACE Squamous Epi Cells Auto 2 Urine Mucus (Auto) MOD Urine Ascorbic Acid NEGATIVE Urine Opiates Screen NEGATIVE Urine Methadone Screen NEGATIVE Ur Barbiturates Screen NEGATIVE Ur Phencyclidine Scrn NEGATIVE Ur Amphetamines Screen NEGATIVE U Benzodiazepines Scrn NEGATIVE Urine Cocaine Screen NEGATIVE U Marijuana (THC) Screen NEGATIVE - Diagnostic Test Radiology reviewed: Reports reviewed Radiology results interpreted by me: 08/18/20 16:50 Knee X-Ray 08/18/20 13:52 IMPRESSION: NEGATIVE STUDY OF THE LEFT KNEE. NO RADIOGRAPHIC EVIDENCE OF ACUTE INJURY. Venous Doppler Study 08/18/20 13:52 IMPRESSION: NO EVIDENCE DVT OR SVT IN THE LEFT LEG. Discharge - Discharge Clinical Impression: Left knee pain Qualifiers: Chronicity: chronic Qualified Code(s): M25.562 - Pain in left knee Condition: Stable Disposition: HOME, SELF-CARE Additional Instructions: *Today are seen in the emergency department for knee pain. This does appear to be an acute on chronic issue. You do need to follow-up with orthopedics. I provided you with multiple referrals in the area. We have placed you in a knee immobilizer. Please use this for comfort. Please rest, ice and elevate your left knee. You are being prescribed naproxen. Please take this twice a day over the next 7 days. Please make sure you are taking this with food. Your Doppler was negative for a blood clot in your leg. Prescriptions: Naproxen 500 mg PO BID PRN #14 tablet PRN Reason: Forms: Return to Work Referrals: JEET NAIK MD [ACTIVE STAFF] - Follow up as needed JACKIE RANDOLPH JR, DO [ACTIVE PROVISIONAL STAFF] - Follow up as needed LAURA HAM DO [ACTIVE STAFF] - Follow up as needed
[2020-08-18] MEDS ORDERED: ACETAMINOPHEN 325 MG TABLET PO ONE (16:52)
[2020-08-18 17:53] VITALS: BP 142/86
== END 2020-08-18 17:50 | disposition home or self-care (01) ==
LOC: ER 13:19
DX: M25.562 Pain in left knee (principal); G89.29 Other chronic pain; I10 Essential (primary) hypertension; Z86.718 Personal history of other venous thrombosis and embolism
CPT/HCPCS: 36415; 80053; 80307; 81001; 83735; 84100; 85025; 85610; 85730; 93971; 99285